=== PATIENT | female | born 1975 | race Two or more races ===

== ENCOUNTER 2024-11-24 11:20 | Outpatient (AMB) | payer BC, SELFPAY ==
--- NOTE | 2024-11-24 11:31 | A.OFFPC_ITS ---
Vital Signs 11/24/24 11:38 Height 4 ft 11.06 in Weight 125 lb 4 oz BMI 25.2 BP 114/78 Blood Pressure Location Lt brachial Position Sitting Respiration 12 Pulse 77 Pulse Source Pulse Oximeter Pulse Oximetry (%) 99 Oxygen Delivery Method Room Air Intake Visit Reasons: Est. Care Intake Note: New patient visit Event Promoter Required: No Allergies pseudoephedrine Allergy (Mild, Verified 11/24/24 11:35) Headache Sulfa (Sulfonamide Antibiotics) Allergy (Unknown, Verified 11/24/24 11:35) Unknown Medication List - Last Reconciled 11/24/24 by Gregoria Tyler PA-C albuterol sulfate 90 mcg/actuation 2 puffs inhalation Q6H PRN epinephrine 0.3 mg IM Q10M PRN Tobacco use date assessed: 11/24/24 Dental Screening Dental Screen Date: 11/24/24 Did you have a dental visit in the last 12 months?: Yes Did you have a dental problem in the last 6 months where you did not have access to dental care?: No Was dental information given to patient?: Patient has dentist HPI Est. Care HPI Details Patient is a 49-year-old female who presents today to [facility]. She is transferring from [facility]. She has a hx of renal stones, hematuria, asthma, seasonal allergies, vit d deficiency and anxiety. Pulm: She has RAD at change of season and winter specifically is harder. CV: Blood pressure today in the office is 114/78. No chest pain, shortness on breath or palpitations. Cholesterol has always been diet controlled. Uro: PVU has stones and has had to have surgical interventions. She sees them annually. Last scan showed 1 stone in left kidney in 08/07. Psych: She states that she does suffer from anxiety and paranoid. She states that as she has gotten older she has become more resistant to things such as traveling, trying new foods or medications. She says that she is not sure why she has these fears but she needs a lot of reassurance. Her is very supportive. She states that he will end of driving her places and she just wants better control of her anxiety. 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 Oviedo ([facility]), still has menses Mammo: UTD, follows through [facility] 09/14/24 Colonoscopy: Never had [facility] Surgical History (Updated 11/24/24 @ 11:44 by Dai Cuevas CMA) History of laparoscopic appendectomy Hx laparoscopic cholecystectomy H/O tubal ligation H/O oral surgery Family History (Updated 11/24/24 @ 11:46 by Dai Cuevas CMA) Mother Asthma HTN (hypertension) High cholesterol Skin cancer Maternal Grandmother Cardiovascular disease Social History (Updated 11/24/24 @ 11:41 by Dai Cuevas CMA) Housing: House Alcohol intake: current Comment: 1-2 times a year Patient Tobacco Use Status: Never used Tobacco e-Cigarette/Vaping Use: Never Used service: No Current occupational status: employed 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 1. Little interest or pleasure in doing things: not at all 2. Feeling down, depressed, or hopeless: not at all 3. Trouble falling or staying asleep, or sleeping too much: not at all 4. Feeling tired or having little energy: not at all 5. Poor appetite or overeating: not at all 6. Feeling bad about yourself - or that you are a failure or have let yourself or your family down: not at all 7. Trouble concentrating on things, such as reading the newspaper or watching television: not at all 8. Moving or speaking so slowly that other people could have noticed. Or the opposite - being so fidgety or restless that you have been moving around a lot more than usual: not at all 9. Thoughts that you would be better off or of hurting yourself in some way: not at all Total score: 0 Depression Screening Interpretation: Negative Depression Screening Done: Yes 73442 - PHQ-9 Billing: Yes Source: Developed by Drs. Master Oneill, Nithya Rosales, Aashish Cervantes and colleagues, with an educational marlen from [employer]. Thrive Questionnaire Date Thrive assessed: 11/18/24 I am a: Patient What is your living situation today?: I have a steady place to live Within the past 12 months, did the food you bought not last and you didn't have the money to get more?: Never true Within the past 12 months, did you worry whether your food would run out before you got money to buy more?: Never true Do you have trouble paying for medicines?: No Do you have trouble getting transportation to medical appointments?: No Do you have trouble paying your heating and electricity bill?: No Do you have trouble taking care of your child, family member or friend?: No Do you have trouble with day-to-day activities such as bathing, preparing meals, shopping, managing finances, etc.?: No Are you currently unemployed and looking for a job?: No Are you interested in more education?: No Please select the resources that you would like help with: None Currently or been in a relationship where the following occur: No concerns reported THRIVE Score: 0 AUDIT C Alcohol Use Questionnaire (AUDIT-C) 1. How often do you have a drink containing alcohol?: Monthly or less 2. How many drinks containing alcohol do you have on a typical day when you are drinking?: 1 or 2 3. How often do you have six or more drinks on one occasion?: Never Total Score: 1 OMARI-7 AMB Questionnaire OMARI-7 Date OMARI - 7 assessed: 11/24/24 Feeling nervous, anxious, or on edge: 0 = Not at all Not being able to stop or control worryin = Not at all Worrying too much about different things: 0 = Not at all Trouble relaxin = Not at all Being so restless that it is hard to sit still: 0 = Not at all Becoming easily annoyed or irritable: 0 = Not at all Feeling afraid as if something awful might happen: 0 = Not at all Total OMARI-7 score (0-4 normal; 5-9 mild; 10-14 moderate; 15-21 severe): 0 Source: Developed by Drs. Master Oneill, Nithya Rosales, Aashish Cervantes and colleagues, with an educational marlen from [employer]. OMARI-7 Assessment Billing OMARI-7 Assessment Tool: OMARI-7 Assessment 36178 Physical exam (Primary Care) Vital Signs: Last Vital Signs Pulse 77 11/24/24 11:38 Resp 12 11/24/24 11:38 BP 114/78 11/24/24 11:38 Pulse Ox 99 11/24/24 11:38 Oxygen Delivery Method Room Air 11/24/24 11:38 BMI result Body Mass Index 25.2 Tobacco/Smoking Status: Tobacco use Status Tobacco use date assessed 11/24/24 11/24/24 11:48 Patient Tobacco Use Status Never used Tobacco 11/24/24 11:48 e-Cigarette/Vaping Use Never Used 11/24/24 11:48 PHQ-9: PHQ-9 Score PHQ-9: Total score 0 11/24/24 11:48 Depression Screening Interpretation: Negative Thrive Assessment: Date of Thrive Assessment Date Thrive assessed 11/18/24 11/24/24 11:32 Currently or been in a relationship where the following occur: No concerns reported Const Orientation/consciousness: patient oriented x3 HENMT Ears: hearing grossly normal bilaterally Neck Thyroid: Thyroid normal Lymphatic: no lymphadenopathy noted Resp Auscultation: clear to auscultation bilaterally Cardio Rate: regular rate Rhythm: regular rhythm Heart sounds: S1 normal heart sound present and S2 normal heart sound present GI Inspection: Yes normal to inspection Palpation (GI): Soft to palpation and Other GI palpation findings present (nontender, no cva tenderness) Auscultation: normoactive bowel sounds Rectal Exam - Female: deferred Skin General skin exam: no rashes or lesions noted Neuro General: patient oriented x3, gait normal and no focal motor deficits Coding Level of Care Code New Pt Level 3 (55756) Complex EM visit Add On G2211 Diagnoses Renal stones N20.0 Vitamin D deficiency E55.9 Generalized anxiety disorder F41.1 Additional Codes OMARI-7 Assessment Billing - OMARI-7 Assessment Tool: OMARI-7 Assessment 84221 ([id number]) PHQ-9 - 65876 - PHQ-9 Billing: Yes ([id number]) Assessment & Plan Assessment & Plan (1) Renal stones: Code(s): N20.0 - Calculus of kidney Category: Medical Plan: Followed by urology (2) Vitamin D deficiency: Code(s): E55.9 - Vitamin D deficiency, unspecified Category: Medical Plan: We will monitor (3) Generalized anxiety disorder: Code(s): F41.1 - Generalized anxiety disorder Category: Medical Plan: Referral to behavioral health Plan Referral to gastroenterology Ordered Orders: Orders Complete Blood Count Auto Diff Today E55.9 - Vitamin D deficiency, unspecified, F41.1 - Generalized anxiety disorder, J45.909 - Unspecified asthma, uncomplicated, N20.0 - Calculus of kidney, Z01.89 - Encounter for other specified special examinations Vitamin D 25-OH Total Today E55.9 - Vitamin D deficiency, unspecified, F41.1 - Generalized anxiety disorder, J45.909 - Unspecified asthma, uncomplicated, N20.0 - Calculus of kidney, Z01.89 - Encounter for other specified special examinations Comprehensive [place]. Panel Fast Today E55.9 - Vitamin D deficiency, unspecified, F41.1 - Generalized anxiety disorder, J45.909 - Unspecified asthma, uncomplicated, N20.0 - Calculus of kidney, Z01.89 - Encounter for other specified special examinations Lipid Panel Today E55.9 - Vitamin D deficiency, unspecified, F41.1 - Generalized anxiety disorder, J45.909 - Unspecified asthma, uncomplicated, N20.0 - Calculus of kidney, Z01.89 - Encounter for other specified special examinations TSH reflex Free T4 Today E55.9 - Vitamin D deficiency, unspecified, F41.1 - Generalized anxiety disorder, J45.909 - Unspecified asthma, uncomplicated, N20.0 - Calculus of kidney, Z01.89 - Encounter for other specified special examinations Vitamin B12 and Folate Today F41.1 - Generalized anxiety disorder Referrals Gastroenterology Referral Z12.11 - Encounter for screening for malignant neoplasm of colon Behavioral Health Referral F41.1 - Generalized anxiety disorder
[2024-11-24 11:38] VITALS: BP 114/78; PULSE 77; RESP 12; O2SAT 99; BMI 25.2
--- OUTSIDE RECORDS SUMMARY | 2024-11-24 12:20 | XMS_ITS | Patient Health Record ---
Author Organization [employer] Address [address] [facility] [address] [place] [address] Care Team Providers Care Angle Roll Operator Name Role Phone GERMÁN GONZALES Unavailable [phone] Allergies Allergen (clinical drug ingredient) Drug/Non Drug Allergy documented on EMR Reaction Allergy Type Onset Date Status LATEX EXAM GLOVES Skin Rash Drug Allergy Active acetaminophen Acetaminophen Dizzy/Vomit Drug Allergy Active Substance with sulfonamide structure and antibacterial mechanism of action (substance) Sulfa Antibiotics Skin Rash Drug Allergy Active Reason For Referral No Information Medications Medication SIG (Take, Route, Frequency, Duration) Notes Start Date End Date Status EPINEPHrine 0.3 MG/0.3ML Injection for 2 PRN Active Albuterol Sulfate HFA 108 (90 Base) MCG/ACT 1 puff as needed Inhalation every 4 hrs PRN Active Vitamin D 5,000 IU DAILY Activ e Social History Tobacco Use: Social History Observation Description Date Details (start date - stop date) Never Smoker NA - NA Tobacco Use/Smoking Question Answer Notes Are you a nonsmoker Section Notes: She stopped drinking alcohol in May 2023. Problems Problem Type SNOMED Code ICD Code Onset Dates Problem Status W/U Status Risk Notes Problem Uncomplicated asthma (disorder) (343456117) Unspecified asthma, uncomplicated (J45.909) Active confirmed Problem Psoriasis (4179293) Psoriasis, unspecified (L40.9) Active confirmed Problem Alopecia areata (13379022) Alopecia areata, unspecified (L63.9) Active confirmed Problem Calculus of kidney (N20.0) Active confirmed Problem COVID-19 (788683805) COVID-19 (U07.1) Active confirmed Problem Gynecological examination normal ([id number]) Routine gynecological examination (V72.31) Active confirmed Diag Vital Signs Temperature 97.1 degrees Fahrenheit 12/05/2023 Blood pressure diastolic 78 mm Hg 12/05/2023 Height 59.75 in 12/05/2023 Blood pressure systolic 106 mm Hg 12/05/2023 Weight 123 lbs 12/05/2023 BMI 24.22 kg/m2 12/05/2023 Encounters Encounter Location Date Provider Diagnosis [facility] [address] [place] [address] 12/05/2023 GERMÁN GONZALES Encounter for gynecological examination (general) (routine) without abnormal findings Z01.419 and Encounter for screening mammogram for malignant neoplasm of breast Z12.31 Assessments Encounter Date Diagnosis (ICD Code) Assessment Notes Treatment Notes Treatment Clinical Notes Section Notes 12/05/2023 Encounter for gynecological examination (general) (routine) without abnormal findings (ICD-10 - Z01.419) During the visit, the following areas of concern were addressed: Discussed cervical cancer screening with either cytology alone every 3 years or high risk HPV co-testing every 5 years as per ASCCP guidelines. Advised continued annual pelvic exams. Patient encouraged to increase her level of exercise. SBE technique encouraged/tau ght. Patient reminded when annual mammogram is due. Patient encouraged to keep colon screening up to date. 12/05/2023 Encounter for screening mammogram for malignant neoplasm of breast (ICD-10 - Z12.31) Plan Of Treatment Pending Test Test Name Order Date ANTI-HEPATITIS C 07/17/2021 HEP. B SURF. AG 07/17/2021 THIN PREP,HPV,MARIAH IF HPV+/CYT-,CT/GC(>2 9YR)(DIAG) 07/17/2021 SYPHILIS TESTING 07/17/2021 HIV AB-AG 4TH GENERATION 07/17/2021 ULTRASOUND: PELVIC W/TRANSVAGINAL 2021 MM Digital Screening Mammogram 3D 2022 MM Digital Screening Mammogram 3D 2023 MM Digital Screening Mammogram 3D 2021 Next Appt Details Provider Name:GERMÁN BRADY Wade, 12/09/2024 08:30:00 AM, [address], [address], [place], [address], Insurance Providers Payer Name Payer Address Payer Phone Subscriber Number Group Number Insured Name Patient Relationship to Insured Coverage Start Date Coverage End Date [employer] [place] [address] [place] [address] [phone] [id number] BISI HILARIO Self - patient is the insured Medical (General) History Medical History History ICD Code Calculus of kidney N20.0 Unspecified asthma, uncomplicated J45.90 9 Psoriasis, unspecified L40.9 Alopecia areata, unspecified L63.9 COVID-19 U07.1 Surgical History Surgery Date(Month/Year) BTL 08/1998 Cholecystectomy/Appendectomy Right breast biopsy - [facility] 09/2021 Removal of kidney stone 07/2022 Hospitalization History Reason Date(Month/Year) Childbirth
--- OUTSIDE RECORDS SUMMARY | 2024-11-24 12:20 | XMS_ITS ---
Author Name [facility] Organization Unknown Encounters Encounter Type Encounter Reason Primary Diagnosis Location Date Ambulatory [facility] ([facility]) 08/07/2024
--- OUTSIDE RECORDS SUMMARY | 2024-11-24 12:20 | XMS_ITS ---
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 Encounter Location Date Provider Diagnosis [facility] [employer] [address] [place] [address] [address] [place] [address] 10/24/2023 GERMÁN GONZALES Plan Of Treatment Next Appt Details Provider Name:GERMÁN Olvera, 12/09/2024 08:30:00 AM, [address] [facility], [address], [place], [address], Progress Notes * BRANDY HILARIOOB:0 1975 (49 yo F)Acc No.[id number]:10/24/2023 PROGRESS NOTES Patient:?MELLISSA BONE TIFFANIE SOTO Provider:?GERMÁN GONZALES MD :1975???Age:48 Y???Sex:Female D ate:10/24/2023 Address:[address] [place] [address] Subjective: * Chief Complaints: * ???1. 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 * Medical History:? Objective: * Vitals:? Assessment: Plan: * Treatment: * Images: Billing Information: * Visit Code:? * Procedure Codes:? * Electronic signature of GERMÁN GONZALES MD on 11/24/2024 at 12:20 PM EDT Sign off status: Pending * Provider:?GERMÁN GONZALES MD Date:?2023 Generated for Anne asif/Abimael/Gordon on:?11/24/2024 12:20 PM EDT
== END 2024-11-24 12:20 | disposition home or self-care (01) ==
LOC: HO.HMCFM 11:20
PROVIDERS: PCP Physician Assistant; Visit Provider Physician Assistant
DX: N20.0 Calculus of kidney (principal); E55.9 Vitamin D deficiency, unspecified; F41.1 Generalized anxiety disorder

== ENCOUNTER → 2024-11-24 11:20 | Outpatient (BNVA) | payer BC, SELFPAY | PROVIDERS: PCP Physician Assistant; Visit Provider Physician Assistant | DX: Z76.89 Persons encountering health services in other specified circumstances (principal); N20.0 Calculus of kidney; E55.9 Vitamin D deficiency, unspecified; F41.1 Generalized anxiety disorder | CPT/HCPCS: 96127 ==

== ENCOUNTER 2024-12-09 07:33 | Outpatient (REF) | payer BC, SELFPAY ==
[2024-12-09 11:55] LABS: MANUAL DIFF FLAG NO
[2024-12-09 12:11] LABS: Basophils Percent Auto 0.6 % (0-2); Eosinophils Absolute Auto 0.3 X10*3/uL (0.0-0.4); Eosinophils Percent Auto 8.3 % (0-4); Hematocrit 35.7 % (37.0-47.0); Hemoglobin 11.8 g/dl (12.0-16.0); Imm Gran Abs Auto 0.01 X10*3/uL (0.00-0.03); Imm Gran Pct Auto 0.3 % (0.0-0.4); Lymphocytes Percent Auto 28.7 % (20-40); Mean Corpuscular HGB Conc 33.1 g/dl (31.0-35.0); Mean Corpuscular Hemoglobin 32.9 pg (27.0-33.0); Mean Corpuscular Volume 99.4 fL (80.0-98.0); Mean Platelet Volume 11.7 fL (9.4-12.3); Monocytes Absolute Auto 0.4 X10*3/uL (0.1-1.2); Monocytes Percent Auto 9.9 % (2-11); Neutrophils Absolute Auto 1.9 x10*3/uL (2.0-8.3); Neutrophils Percent Auto 52.2 % (45-73); Platelet Count 207 X10*3/uL (160-400); Red Blood Count 3.59 X10*6/uL (4.20-5.50); Red Cell Distribution Width 12.3 % (11.0-16.0); White Blood Count 3.6 X10*3/uL (4.8-10.8)
[2024-12-09 12:47] LABS: Alanine Aminotransferase 22 U/L (0-31); Albumin Level 4.4 g/dL (3.5-5.0); Alkaline Phosphatase 64 U/L (39-117); Anion Gap 10 (12-20); Aspartate Amino Transferase 21 U/L (5-31); Bilirubin Total 0.5 mg/dL (0.0-1.0); Blood Urea Nitrogen 13 mg/dL (9-16); Calcium 9.6 mg/dL (8.4-10.2); Carbon Dioxide 28 mmol/L (22-29); Chloride 110 mmol/L (96-108); Cholesterol 192 mg/dL (<200); Estimated Glomerular Filt Rate > 60; Glucose Fasting 93 mg/dL (60-99); HDL Cholesterol 68 mg/dL (>40); LDL Cholesterol Calculated 116 mg/dL (<100); Sodium 144 mmol/L (135-145); Triglycerides 40 mg/dL (<150)
[2024-12-09 13:05] LABS: Vitamin D 25-OH Total 32.2 ng/mL (>30)
[2024-12-09 13:16] LABS: Folate 8.2 ng/mL (> or = 4.0); Vitamin B12 175 pg/mL (200-900)
== END 2024-12-09 07:34 | disposition home or self-care (01) ==
LOC: HO.WFDLDS 07:33
PROVIDERS: Visit Provider Physician Assistant
DX: Z01.89 Encounter for other specified special examinations (principal); N20.0 Calculus of kidney; J45.909 Unspecified asthma, uncomplicated; E55.9 Vitamin D deficiency, unspecified; F41.1 Generalized anxiety disorder
CPT/HCPCS: 36415; 80053; 80061; 82306; 82607; 82746; 84443; 85025

== ENCOUNTER 2024-12-29 10:28 | Outpatient (REF) | payer BC, SELFPAY ==
--- OUTSIDE RECORDS SUMMARY | 2023-10-24 05:30 | XMS_ITS ---
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 Encounters Encounter Location Date Provider Diagnosis [facility] [address] [place] [address] [address] [place] [address] 10/24/2023 GERMÁN GONZALES Plan Of Treatment Next Appt Details Provider Name:GERMÁN Olvera, 12/13/2025 08:20:00 AM, [address] [facility], [address], [place], [address], Progress Notes * MALLOY BRANDY BONEOB:0 1975 (49 yo F)Acc No.[id number]:10/24/2023 PROGRESS NOTES Patient: Val BONE BISI Provider: Ting GONZALES MD :1975 A ge:48 Y S ex:Female Date:10/24/2023 Address:[address] [place] [address], [id number] Subjective: * Chief Complaints: * 1 . 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 * Medical History: Objective: * Vitals: Assessment: Plan: * Treatment: * Images: Billing Information: * Visit Code: * Procedure Codes: * Electronic signature of GERMÁN GONZALES MD on 12/29/2024 at 11:54 AM EDT Sign off status: Pending * Provider: Ting GONZALES MD Date: 0 10/24/2023 Generated for Anne asif/Abimael/Jaydaitting on: 0 12/29/2024 11:54 AM EDT
[2024-12-29 14:22] LABS: MANUAL DIFF FLAG NO
[2024-12-29 14:28] LABS: Basophils Percent Auto 0.5 % (0-2); Eosinophils Absolute Auto 0.3 X10*3/uL (0.0-0.4); Hematocrit 35.7 % (37.0-47.0); Hemoglobin 11.9 g/dl (12.0-16.0); Imm Gran Abs Auto 0.01 X10*3/uL (0.00-0.03); Imm Gran Pct Auto 0.3 % (0.0-0.4); Lymphocytes Percent Auto 25.9 % (20-40); Mean Corpuscular HGB Conc 33.3 g/dl (31.0-35.0); Mean Corpuscular Hemoglobin 33.1 pg (27.0-33.0); Mean Corpuscular Volume 99.2 fL (80.0-98.0); Mean Platelet Volume 11.5 fL (9.4-12.3); Monocytes Absolute Auto 0.3 X10*3/uL (0.1-1.2); Monocytes Percent Auto 8.6 % (2-11); Neutrophils Absolute Auto 2.1 x10*3/uL (2.0-8.3); Neutrophils Percent Auto 57.7 % (45-73); Platelet Count 225 X10*3/uL (160-400); Red Cell Distribution Width 12.5 % (11.0-16.0); White Blood Count 3.7 X10*3/uL (4.8-10.8)
[2024-12-29 14:43] LABS: Iron 98 mcg/dL (30-160); Percent Iron Saturation 28 % (15-50); Total Iron Binding Capacity 351 mcg/dL (228-428); Unsaturated Iron Binding 253 ug/dL
[2024-12-29 15:04] LABS: Ferritin 9 ng/mL (10-250)
== END 2024-12-29 10:29 | disposition home or self-care (01) ==
LOC: HO.WFDLDS 10:28
PROVIDERS: Visit Provider Physician Assistant
DX: D64.9 Anemia, unspecified (principal)
CPT/HCPCS: 36415; 82728; 83540; 85025

== ENCOUNTER → 2025-01-25 13:11 | Outpatient (BNV) | payer BC, SELFPAY | PROVIDERS: PCP Physician Assistant; Referring Provider Physician Assistant; Visit Provider Internal Medicine Medical Oncology | DX: D50.9 Iron deficiency anemia, unspecified (principal) | CPT/HCPCS: 99204 ==

== ENCOUNTER 2025-05-04 15:35 | Outpatient (AMB) | payer BC, SELFPAY ==
--- NOTE | 2025-05-04 15:39 | A.OFFVIS_ITS ---
Vital Signs 05/04/25 15:40 Height 4 ft 6 in Weight 126 lb BMI 30.4 BP 119/86 Blood Pressure Location Lt brachial Position Sitting Pulse 86 Pulse Oximetry (%) 98 Oxygen Delivery Method Room Air Intake Visit Reasons: colo screen Intake Note: Patient new consult for 1st pre Colonoscopy screening Patient denies any GI issues for today visit. 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 Referred for pre colonoscopy screening Pt reports daily BM, with rare constipation episodes initially after starting Fe supplementation three months ago; currently regular since initiation of new regimen. No c/o diarrhea. No further issues with iron-induced constipation after initial adjustment; managed with morning admin and orange juice. No reported med side effects. Denies recurrent reflux, heartburn is rare and only triggered by late-night tomato-based meals; managed by lifestyle avoidance, no meds required. Menses have normalized since Fe therapy; no heavy bleeding. Reports stable appetite and diet. No new systemic or GI sx, urgent visits, or hospitalizations. . No reported is sues with asthma or need for inhaler use. Patient denies: fever/chills, n/v, appetite changes, regurgitation,dysphasia, unintentional wt loss, ab pain or melena/hematochezia. Social hx: -denies ETOH use -denies recreational drug use - non-smoker - family hx as below -denies personal hx of CA -denies significant cardiopulmonary history -tolerated anesthesia in the past without difficulty. [facility] Medical History (Updated 05/05/25 @ 11:53 by Genny Lao CNP) Colon cancer screening Surgical History History of laparoscopic appendectomy Hx laparoscopic cholecystectomy H/O tubal ligation H/O oral surgery Family History (Updated 05/04/25 @ 16:02 by Genny Lao CNP) Mother Asthma HTN (hypertension) High cholesterol Skin cancer Diverticulosis Maternal Grandmother Cardiovascular disease Son Crohn disease Social History Household Members: Spouse Housing: House Are you a primary respiratory care technician to a significant other at home: Yes Do you presently have visiting nurse or other home services: No Alcohol intake: current Comment: 1-2 times a year Patient Tobacco Use Status: Never used Tobacco e-Cigarette/Vaping Use: Never Used Second Hand Smoke Exposure: No service: No Current occupational status: employed 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 Current occupational exposures/hazards: No Cognitive needs: No Hearing needs: No Vision needs: No Review of Systems Const Reports as per HPI ENT Reports as per HPI Card Reports as per HPI Resp Reports as per HPI GI Reports as per HPI Reports as per HPI Physical Exam Vital Signs: Last Vital Signs Pulse 86 05/04/25 15:40 BP 119/86 05/04/25 15:40 Pulse Ox 98 05/04/25 15:40 Oxygen Delivery Method Room Air 05/04/25 15:40 BMI result Body Mass Index 30.4 Const General: healthy appearing, no acute distress and well developed Nutritional Appearance: average body habitus Orientation/consciousness: patient oriented x3 HEENT Head: Yes normal to inspection, Yes normocephalic and Yes atraumatic Face and sinus: Yes normal facial exam Eyes General: appearance normal, both eyes and all related structures Neck Neck: Yes normal visual inspection Resp Effort & Inspection: normal respiratory effort, able to speak in complete sentences, no tracheal deviation and symmetric chest movement Auscultation: clear to auscultation bilaterally Cardio Jugular venous distension: no JVD Rate: regular rate Rhythm: regular rhythm Heart sounds: S1 normal heart sound present, S2 normal heart sound present, no gallops and no murmurs GI Inspection: Yes normal to inspection and No distended Palpation (GI): Soft to palpation, not firm, nontender and No hepatosplenomegaly present Auscultation: normal bowel sounds Neuro General: patient oriented x3 Gait exam (Neuro): Normal gait present Psych Appearance: grossly normal Mental Status: mental status grossly normal Speech and movement: Normal speech and movement present Affect: normal affect Attitude: cooperative Thought process: Normal thought process present Thought content: Normal thought content present Insight: Good insight present (Psych) Judgement: Good judgement present (Psych) Assessment & Plan Assessment & Plan (1) Colon cancer screening: Code(s): Z12.11 - Encounter for screening for malignant neoplasm of colon Category: Medical Plan: Screening indicated due to age and Fe deficiency anemia of unclear source. Additional Testing: Colonoscopy scheduled as both diagnostic (anemia workup) and CRC screening. Medications: -prescriptions for laxative tablets and MiraLax sent to pharmacy; instructions for Gatorade purchase and clear liquid diet given. Patient educated on scheduling process, procedure preparation, including avoiding certain foods and ensuring clear liquid intake Advised on necessity for ride post-procedure due to sedation. (2) Anemia: Code(s): D64.9 - Anemia, unspecified Category: Medical Qualifiers: Anemia type: iron deficiency Iron deficiency anemia type: unspecified iron deficiency Qualified Code(s): D50.9 - Iron deficiency anemia, unspecified Plan: Stable; menses regular; responding to Fe/B12 with normalized cycle and improved sx. - Occult GI blood loss yet to be excluded. No constitutional or alarming GI sx. Additional Testing: - Colonoscopy & EGD ordered to r/o upper/lower GI bleeding/malabsorptive/ulcerative etiology. Medications: - Continue Fe PO QD (AM w/OJ); continue B12 per current regimen. - No changes to Rx unless side effects develop. Lifestyle Recommendations: - Continue high-fiber, hydration. - Maintain avoidance of dietary triggers for reflux. Referrals / Coordination of Care: - Scheduling colonoscopy + EGD. - Pharmacy: Miralax, bisacodyl. - No other current referrals. Follow-Up Plan: - FU after procedure for results/reassessment. - Monitor Fe/blood indices post-endoscopy. Plan Follow-up after endoscopy or sooner as needed Time: I spent a total of 30 minutes on the date of encounter which includes: Preparing to see the patient (reviewed previous documentation, test results and medical history) Performing a medically appropriate exam and/or evaluation Ordering medications, tests, and procedures Documenting clinical information in the health record Orders: Referrals GI Procedure Notification D64.9 - Anemia, unspecified, Z12.11 - Encounter for screening for malignant neoplasm of colon Medications: New polyethylene glycol 3350 (Miralax) per colonoscopy prep instructions 238 grams PO ONCE 238 grams 0RF bisacodyl Take per colonoscopy instructions 20 mg (4 x 5 mg) PO ONCE 4 tabs 0RF Coding Level of Care Code New Pt New Pt Level 3 (92357) Patient Type New Diagnoses Colon cancer screening Z12.11 Iron deficiency anemia, unspecified iron deficiency anemia type D50.9 Anemia type: iron deficiency Iron deficiency anemia type: unspecified iron deficiency
[2025-05-04 15:40] VITALS: BP 119/86; PULSE 86; O2SAT 98; BMI 30.4
--- OUTSIDE RECORDS SUMMARY | 2025-05-04 21:42 | XMS_ITS | Data Portability ---
Author Organization [facility] Address [address] [place] [address] Care Team Providers Care Assistant Name Role Phone MCKAY LUIS EDUARDO Primary Care Provider Assessment No assessment recorded. Plan of Treatment Reminders Order Date Submit Date Provider Last Modified By Organization Details Last Modified Time Details Appointments None recorded. Lab rapid flu (A+B) 2024 025 [email or web address] 247 _[facility], [address] [place] [address], [phone], 5 09:14:28 SARS CoV 2 (COVID-19) Ag, QL, IA, upper respiratory specimen 2024 025 [email or web address] 247 _[facility], [address] [place] [address], [phone], 5 09:14:28 Referral None recorded. Procedures None recorded. Surgeries None recorded. Imaging None recorded. Medication Orders None recorded. Patient TargetsNo targets recorded. Patient Instructions Encounter Date Encounter Id Patient Instructions Last Modified By Organization Details Last Modified Time 08/07/2024 [id number] If you test positive for COVID-19, stay home for at least 5 days and isolate from others in your home. You are likely most infectious during these first 5 days. Wear a high-quality mask if you must be around others at home and in public. Do not go places where you are unable to wear a mask. For travel guidance, see [facility] s Travel webpage. Do not travel. Stay home and separate from others as much as possible. Use a separate bathroom, if possible. Take steps to improve ventilation at home, if possible. Don t share personal household items, like cups, towels, and utensils. Monitor your symptoms. If you have an emergency warning sign (like trouble breathing), seek emergency medical care immediately. If you had symptoms and: Your symptoms are improving You may end isolation after day 5 if: You are fever-free for 24 hours (without the use of fever-reducing medication). Your symptoms are not improving Continue to isolate until: You are fever-free for 24 hours (without the use of fever-reducing medication). Your symptoms are improving. Regardless of when you end isolation Until at least day 11: Avoid being around people who are more likely to get very sick from COVID-19. Remember to wear a high-quality mask when indoors around others at home and in public. Do not go places where you are unable to wear a mask until you are able to discontinue masking (see below). For travel guidance, see [facility] s Travel webpage. [email or web address] Not available 08/07/2024 09:03:46 Reason for Referral None Reported. Results Created Date Observation Date Name Description Value Unit Range Abnormal Flag Note LastModifiedBy Organization Detail LastModifiedTime 08/07/1908/07/2024 rapid flu (A+B) Unknown Analyte negati ve Not Available ie [address], [address], 08/07/2024 08:44:23 08/07/19 25 08/07/2024 rapid flu (A+B) Unknown Analyte negati ve Not Available ie [address], [address], 08/07/2024 08:44:23 08/07/19 25 08/07/2024 rapid flu (A+B) Unknown Analyte n Not Available [address], [address], 08/07/2024 08:44:23 08/07/19 25 08/07/2024 rapid flu (A+B) Unknown Analyte yes Not Available [address] [place] [address], [address], 08/07/2024 08:44:23 08/07/1908/07/2024 SARS CoV 2 (COVI D-19) Ag, QL, IA, upper respi rator y speci men Unknown Analyte positi ve Not Available [address] [place] [address], [phone], 08/07/2024 08:52:11 08/07/1908/07/2024 SARS CoV 2 (COVI D-19) Ag, QL, IA, upper respi rator y speci men Unknown Analyte n Not Available [address] [place] [address], [phone], 08/07/2024 08:52:11 08/07/1908/07/2024 SARS CoV 2 (COVI D-19) Ag, QL, IA, upper respi rator y speci men Unknown Analyte yes Not Available [address] [place] [address], [phone], 08/07/2024 08:52:11 Result Notes None recorded. Problems Name Problem SNOMED Code Status Onset Date Resolution Date Notes Provider Name and Address Organization Details Recorded Time Asthma 058270557 Active Frank anderson PA - [facility] 08/07/2024 08:42:02 Problem Notes None recorded. Medical Equipment None Reported. Allergies Allergen ID Allergen Name Allergen Category Reaction Reaction Severity Criticality Documentation Date Start Date Code Code System Note Provider Name and Address Organization Details Recorded Time 6109897 Substance with sulfonami de structure and antibacte rial mechanism of action (substanc e) medicatio n itching Not available Not available 08/07/2024 93266 8003 SNOMED Frank anderson PA - [facility] 08:40:25 8900116 latex environme nt,medica tion rash Not available Not available 08/07/2024 31454 91 RxNorm Frank Park monica PA - [facility] 5 08:40:42 7152664 peanut allergeni c extract food,medi cation edema Not available Not available 08/07/2024 81284 8 RxNorm Frank Park monica, PA - [facility] 5 08:41:05 8624258 shellfish derived food,medi cation edema Not available Not available 08/07/2024 Frank Zhang Xavier anderson PA - [facility] 08:41:20 Medications Name Sig Start Date Stop Date Status Note LastModified by Organization Details LastModified Time clobetasol 0.05 % topical cream APPLY TO AFFECTED AREA TWICE A DAY NEEDED FOR FLARE FOR UP TO 2 WEEKS active Not Available Not Available No t Available albuterol sulfate HFA 90 mcg/actuatio n aerosol inhaler INHALE 2 PUFFS INTO THE LUNGS EVERY 4 HOURS NEEDED FOR COUGH, WHEEZING OR SHORTNESS OF BREATH. active Not Available Not Available N ot Available Zoryve 0.3 % topical cream Apply TO THE affected AREAS ONCE daily active Not Available Not Available No t Available Vitals Date Recorded Body height Body mass index (BMI) Body weight Oxygen saturation Oxygen saturation in Arterial blood by Pulse oximetry Heart rate Respiratory rate Body temperature Systolic And Diastolic Provider Name and Address Organization Details Last Updated DateTime 149.86 cm 25.2 kg/m2 99071.0 5 g 99 % 99 % 110 /min 22 /min 98 [degF] 113/79 mm[Hg] Frank Vicente Park PA Maria Elena [facility] 5 08:38:57 Social History Question Answer Notes LastModified by Organizat ion Details LastModified Time Tobacco Smoking Status Never Smoker Frank Park monica PA - [facility] 08/07/2024 08:42:35 Have You Had A Flu Shot This Season? No Information not available 08/07/2024 If No, Would You Like A Flu Shot Today? No Information not available 08/07/2024 What Is Your Water Source? City Information not available 08/07/2024 What Is Your Heat Source? Other Information not available 08/07/2024 What Is Your Relationship Status? Information not available 08/07/2024 Are You Passively Exposed To Smoke? No Information no t available 08/07/2024 Have You Recently Traveled Abroad? No Information not available 08/07/2024 Sex: Unknown Functional Status Question Answer Note LastModified by Organizat ion Details LastModified Time Do you use any illicit or recreational drugs? No Information not available 08/07/2024 Do you or have you ever used any other forms of tobacco or nicotine? No Information not available 08/07/2024 What is your level of alcohol consumption? None Information not available 08/07/2024 Are you currently employed? Yes Information not available 08/07/2024 Mental Status None recorded. Family History Nothing Reported. Medical History No medical history recorded. Gynecological History Statement/Question Response Date of LMP 08/03/2024 Is there any chance of ? No Obstetrics History GPAL:G 0 P 0 0 0 0 Past Encounters Encounter ID Performer Location Encounter Start Date Encounter Closed Date Diagnosis/Indication Diagnosis SNOMED-CT Code Diagnosis ICD10 Code Diagnosis IMO Codes Diagnosis Note [id number] 2099[facility] [address] [address] 11/17/2018 16:22:28 11/17/2018 18:02:[id number] [place] [address] [address] [address] [address] 10/09/2015 09:17:19 10/09/2015 09:55:55 [id number] 2099[facility] [address] [address] 09/15/2019 15:39:13 09/15/2019 16:42:[id number] [place] [address] [address] [address] 07/19/2016 12:17:31 07/19/2016 13:34:38 [id number] [facility] [address] [place] [id number] 09/20/2019 16:06:36 09/20/2019 16:49:[id number] [place], [place] [address] [place] [id number] 05/10/2019 16:10:32 05/10/2019 16:53:[id number] [address] [place] [address] 03/16/2016 09:36:07 03/16/2016 10:31:[id number] [place], [place] [address] [place] [address] 07/17/2017 13:06:30 07/17/2017 13:47:[id number] [place] [address] [place] [address] 08/24/2019 08:20:12 08/24/2019 09:12:[id number] [place] [address] [place] [address] 03/05/2021 11:54:04 03/05/2021 13:01:29 [id number] PREET BANKS [place] [address] [place] [address] 08/07/2024 08:24:38 08/07/2024 09:08:27 [facility] [id number] R05.9 Health Concerns Section Related Observation LastModified by Organization Detai ls LastModified Time None Recorded Concern Status LastModified by Organization Details LastModified Time None Recorded Advance Directives Directive None Recorded Payers Insurance Date Sequence Insurance Name Policy Number Policy Pike Covered Member ID Pike Member ID Guarantor Name 08/07/2024 1 [place] [id number] Rahel Galicia [id number] Rahel Galicia Notes Date Note Type Note Provider Name and Address Organization Details Recorded Time 08/07/2024 text/html CoughReported by PatientHPIFor quality, patient reportsharsh,barking , anddry. For severity, patient reportsmoderate. For duration, patient reportsconstantand2 days. For timing, patient reportssudden. For context, patient reportspatient denies vapingandnon-smoker. For associated symptoms, patient reportsno fever,no chills,no chest pain,no heartburn,no nausea,no vomiting,no edema,no agitation,no wheezing, andno post nasal drip. PREET BANKS MD [address] [place], [address], PA - [facility] 08/07/2024 09:14:31 OBGyn Episode No OBEpisode recorded.
--- OUTSIDE RECORDS SUMMARY | 2025-05-04 21:43 | XMS_ITS | Patient Health Record ---
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 Role Phone GERMÁN GONZALES Unavailable [phone] Allergies Allergen (clinical drug ingredient) Drug/Non Drug [...] Date End Date Status EPINEPHrine 0.3 MG/0.3ML Injection; Duration: 2 PRN Active Vitamin D 5,000 IU DAILY Activ e Albuterol Sulfate HFA 108 (90 Base) MCG/ACT 1 puff as needed Inhalation every 4 hrs PRN Active Social History Tobacco Use: Social History Observation Description Date Details (start date - stop date) Never Smoker NA - NA Tobacco Use/Smoking Question Answer Notes Are you a nonsmoker AUDIT-C (Standard) Question Answer Notes Did you have a drink contain ing alcohol in the past year? Yes How often did you have a dri nk containing alcohol in the past year? Monthly or less (1 point) How many drinks did you have on a typical day when you were drinking in the past year? 1 or 2 drinks (0 point) How often did you have six o r more drinks on one occasion in the past year? Never (0 point) Points 1 Interpretation Negative Section Notes: She stopped drinking alcohol in May 2023. She stopped drinking alcohol in May 2023. Problems Problem Type SNOMED Code ICD Code Onset Dates Problem Status W/U Status Risk Notes Problem Uncomplicated asthma (disorder) (395954490) Unspecified asthma, uncomplicated (J45.909) Active confirmed Problem Psoriasis (6047178) Psoriasis, unspecified (L40.9) Active confirmed Problem Alopecia areata (57643477) Alopecia areata, unspecified (L63.9) Active confirmed Problem Calculus of kidney (83474021) Calculus of kidney (N20.0) Active confirmed Problem COVID-19 (662674834) COVID-19 (U07.1) Active confirmed Problem Gynecological examination normal (032505457206472) Routine gynecological examination (V72.31) Active confirmed Diag Vital Signs Temperature 97.7 degrees Fahrenheit 12/09/2024 Blood pressure diastolic 74 mm Hg 12/09/2024 Height 59.75 in 12/09/2024 Blood pressure systolic 122 mm Hg 12/09/2024 Weight 122 lbs 12/09/2024 BMI 24.02 kg/m2 12/09/2024 Encounters Encounter Location Date Provider Diagnosis [address] [place] [address] 12/09/2024 GERMÁN GONZALES Encounter for gynecological examination (general) (routine) without abnormal findings Z01.419 and Encounter for screening mammogram for malignant neoplasm of breast Z12.31 Assessments Encounter Date Diagnosis (ICD Code) Assessment Notes Treatment Notes Treatment Clinical Notes Section Notes 12/09/2024 Encounter for gynecological examination (general) (routine) without [...] to keep colon screening up to date. 12/09/2024 Encounter for screening mammogram for malignant neoplasm [...] 3D 2023 MM Digital Screening Mammogram 3D 2024 MM Digital Screening Mammogram 3D 2021 Next Appt Details Provider Name:GERMÁN Olvera, 12/13/2025 08:30:00 AM, [address], [address], [place], [address], Insurance Providers Payer Name Payer Address Payer Phone Subscriber Number Group Number Insured Name Patient Relationship to Insured Coverage Start Date Coverage End Date [employer] [place] [address] [place] [address] [id number] BISI HILARIO Self - patient is the insured Medical (General) History Medical History History ICD Code Calculus of kidney N20.0 Unspecified asthma, uncomplicated J45.90 9 Psoriasis, unspecified L40.9 Alopecia areata, unspecified L63.9 COVID-19 U07.1 Surgical History Surgery Date(Month/Year) BTL 08/1998 Cholecystectomy/Appendectomy Right breast biopsy - [facility] 09/2021 Removal of kidney stone 07/2022 Hospitalization History Reason Date(Month/Year) Childbirth
== END 2025-05-04 16:41 | disposition home or self-care (01) ==
LOC: HO.HGI 15:36
PROVIDERS: PCP Physician Assistant; Visit Provider Nurse Practitioner Family
DX: Z01.818 Encounter for other preprocedural examination (principal); Z12.11 Encounter for screening for malignant neoplasm of colon; D50.9 Iron deficiency anemia, unspecified
CPT/HCPCS: S0285

== ENCOUNTER 2025-06-01 08:22 | Outpatient (AMB) | payer BC, SELFPAY ==
--- NOTE | 2025-06-01 08:28 | MHC.PC.OV ---
Vital Signs 06/01/25 08:29 Height 4 ft 6 in Weight 128 lb BMI 30.9 BP 108/74 Blood Pressure Location Rt brachial Position Sitting Respiration 12 Pulse 81 Pulse Source Pulse Oximeter Temp 97.9 F Temp Source Oral Pulse Oximetry (%) 100 Oxygen Delivery Method Room Air Intake Visit Reasons: 6 month fu Intake Note: Follow up [employer] Required: No Allergies shellfish derived (shellfish) Allergy (Severe, Verified 06/01/25 08:31) Anaphylaxis tree nut Allergy (Severe, Verified 06/01/25 08:31) Anaphylaxis pseudoephedrine Allergy (Mild, Verified 06/01/25 08:31) Headache Sulfa (Sulfonamide Antibiotics) Allergy (Unknown, Verified 06/01/25 08:31) Unknown peanuts Allergy (Severe, Uncoded 06/01/25 08:31) Anaphylaxis salmon Allergy (Severe, Uncoded 06/01/25 08:31) Anaphylaxis Medication List - Last Reconciled 06/01/25 by Gregoria Tyler PA-C albuterol sulfate 90 mcg/actuation 2 puffs inhalation Q6H PRN cyanocobalamin (vitamin B-12) (Vitamin B-12) 1,000 mcg PO DAILY epinephrine 0.3 mg (0.3 mL) IM Q10M PRN ferrous sulfate 325 mg PO DAILY polyethylene glycol 3350 (Miralax) 238 grams PO ONCE Tobacco use date assessed: 06/01/25 Dental Screening Dental Screen Date: 11/24/24 HPI 6 month fu HPI Details Patient is a 50-year-old female who presents today to [facility]. She is transferring from [facility]. She has a hx of renal stones, hematuria, asthma, seasonal allergies, vit d deficiency and anxiety. Heme: Following with Hematology for anemia and with GI for the anemia. Compliant with iron and B12 supplement Pulm: She has RAD at change of season and winter specifically is harder. CV: Blood pressure today in the office is 108/74. No chest pain, shortness on breath or palpitations. Cholesterol has always been diet controlled. GI: States that 3 times in the last handful of years she has had severe abdominal pain after drinking wine. She states that last weekend she went out to eat and had a glass of wine and within 20 minutes she had severe right upper quadrant pain that relieved with belching and then she had diarrhea. She says that this is happened 3 times in her life and every time it seems like wine may have been a trigger. She states because of the she does not really drink. She also has an appointment coming up with GI for a double endoscopy 07/12. Currently asymptomatic. No fevers or chills. She states that the pain went away very quickly after the belching and then she felt like her stomach ?cleansed ?. She has not noted any blood in the stool. Her son does have Crohn's disease. She has a history of a cholecystectomy. Uro: PVU has stones and has had to have surgical interventions. She sees them annually. Last scan showed 1 stone in left kidney in 08/07. Psych: She states that she does suffer from anxiety and paranoia Radiologic Technologist: Dr. Oviedo ([facility]), still has menses Mammo: UTD, follows through [facility] 09/14/24 Colonoscopy: Never had, scheduled 07/12 [facility] Medical History (Updated 06/01/25 @ 08:48 by Gregoria Tyler PA-C) Colon cancer screening Surgical History History of laparoscopic appendectomy Hx laparoscopic cholecystectomy H/O tubal ligation H/O oral surgery Family History Mother Asthma HTN (hypertension) High cholesterol Skin cancer Diverticulosis Maternal Grandmother Cardiovascular disease Son Crohn disease Social History Household Members: Spouse Housing: House Are you a primary healthcare financial analyst to a significant other at home: Yes Do you presently have visiting nurse or other home services: No Alcohol intake: current Comment: 1-2 times a year Patient Tobacco Use Status: Never used Tobacco e-Cigarette/Vaping Use: Never Used Second Hand Smoke Exposure: No service: No Current occupational status: employed 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 Current occupational exposures/hazards: No Cognitive needs: No Hearing needs: No Vision needs: No Questionnaire Thrive Questionnaire Date Thrive assessed: 11/18/24 I am a: Patient What is your living situation today?: I have a steady place to live Within the past 12 months, did the food you bought not last and you didn't have the money to get more?: Never true Within the past 12 months, did you worry whether your food would run out before you got money to buy more?: Never true Do you have trouble paying for medicines?: No Do you have trouble getting transportation to medical appointments?: No Do you have trouble paying your heating and electricity bill?: No Do you have trouble taking care of your child, family member or friend?: No Do you have trouble with day-to-day activities such as bathing, preparing meals, shopping, managing finances, etc.?: No Are you currently unemployed and looking for a job?: No Are you interested in more education?: No Please select the resources that you would like help with: None Currently or been in a relationship where the following occur: No concerns reported THRIVE Score: 0 AUDIT C Alcohol Use Questionnaire (AUDIT-C) 1. How often do you have a drink containing alcohol?: Never 3. How often do you have six or more drinks on one occasion?: Never Total Score: 0 OMARI-7 AMB Questionnaire OMARI-7 Date OMARI - 7 assessed: 11/24/24 Source: Developed by Drs. Master Oneill, Nithya Rosales, Aashish Cervantes and colleagues, with an educational marlen from [employer]. Physical exam (Primary Care) Vital Signs: Last Vital Signs Temp 97.9 F 06/01/25 08:29 Pulse 81 06/01/25 08:29 Resp 12 06/01/25 08:29 BP 108/74 06/01/25 08:29 Pulse Ox 100 06/01/25 08:29 Oxygen Delivery Method Room Air 06/01/25 08:29 BMI result Body Mass Index 30.9 Tobacco/Smoking Status: Tobacco use Status Tobacco use date assessed 06/01/25 06/01/25 08:34 Patient Tobacco Use Status Never used Tobacco 06/01/25 08:34 e-Cigarette/Vaping Use Never Used 06/01/25 08:34 Thrive Assessment: Date of Thrive Assessment Date Thrive assessed 11/18/24 06/01/25 08:34 Currently or been in a relationship where the following occur: No concerns reported Const Orientation/consciousness: patient oriented x3 HENMT Ears: hearing grossly normal bilaterally Neck Thyroid: Thyroid normal Lymphatic: no lymphadenopathy noted Resp Auscultation: clear to auscultation bilaterally Cardio Rate: regular rate Rhythm: regular rhythm Heart sounds: S1 normal heart sound present and S2 normal heart sound present GI Inspection: Yes normal to inspection Palpation (GI): Soft to palpation and Other GI palpation findings present (nontender, no cva tenderness) Auscultation: normoactive bowel sounds Rectal Exam - Female: deferred Skin General skin exam: no rashes or lesions noted Neuro General: patient oriented x3, gait normal and no focal motor deficits Results Reviewed Results Reviewed: Laboratory Tests 01/25/25 05/24/25 14:33 14:02 WBC 6.3 RBC 3.68 L Hgb 12.5 Hct 36.9 L Plt Count 203 Sodium 139 Potassium 3.9 Chloride 108 Carbon Dioxide 27 Anion Gap 8 L BUN 12 Creatinine 0.66 Estimated GFR > 60 AST 15 ALT 18 Total Protein 6.6 Albumin 4.3 Vitamin B12 480 Coding Level of Care Code Est Pt Level 4 (66709) Complex EM visit Add On G2211 Diagnoses Abdominal pain R10.9 Iron deficiency anemia, unspecified iron deficiency anemia type D50.9 Anemia type: iron deficiency Iron deficiency anemia type: unspecified iron deficiency Assessment & Plan Assessment & Plan (1) Abdominal pain: Code(s): R10.9 - Unspecified abdominal pain Category: Medical Plan: Abdominal exam today is benign. Labs reviewed with patient. I have ordered an abdominal ultrasound. Advised to contact me if pain returns or if anything worsens or changes. We do have a follow up in one-month. She will follow up again sooner if anything changes. (2) Anemia: Code(s): D64.9 - Anemia, unspecified Category: Medical Qualifiers: Anemia type: iron deficiency Iron deficiency anemia type: unspecified iron deficiency Qualified Code(s): D50.9 - Iron deficiency anemia, unspecified Plan: We will monitor. Orders: Orders US abdomen complete Today R10.9 - Unspecified abdominal pain
[2025-06-01 08:29] VITALS: BP 108/74; PULSE 81; RESP 12; TEMP 36.6; O2SAT 100; BMI 30.9
--- OUTSIDE RECORDS SUMMARY | 2025-06-01 16:04 | XMS_ITS | Encounter Summary ---
Author Organization [facility] Address [address] [place] [address] Care Team Providers Care Make Up Girl Name Role Phone Ministerio Barnhart MD Primary Care Provider Unavail able Aranza Amezquita MD Primary Care Provider Eulalio Muse MD Primary Care Provider Earl Marin DO Primary Care Provider Unavaila Leslye Selby MD Primary Care Provider Un available Encounter Details Date Type Department Care Team Description 03/13/2015 Audio Visual Director Report Medical Records [address] [place] [id number] Anthony Rao MD Social History Tobacco Use Types Packs/Day Years Used Date Smoking Tobacco: Never Smokeless Tobacco: Never Alcohol Use Standard Drinks/Week Comments No 0 (1 standard drink = 0.6 oz pur e alcohol) Sex Assigned at Date Recorded Female 02/22/2021 3:16 PM E DT documented as of this encounter Plan of Treatment Not on file documented as of this encounter Visit Diagnoses Not on filedocumented in this encounter Care Teams Make Up Girl Relationship Specialty Start Date End Date Ministerio Barnhart MD PCP - General 09/02/08 08/20/15 Aranza Amezquita MD PCP - General Internal Medicine 08/21/15 04/04/21 Eulalio Mcqueen MD PCP - General Internal Medicine 04/05/21 06/20/21 Earl Angeles DO PCP - General Internal Medicine 06/21/21 04/22/24 Leslye Greenberg MD PCP - General Internal Medicine 04/23/24 documented as of this encounter
--- OUTSIDE RECORDS SUMMARY | 2025-06-01 16:04 | XMS_ITS | Encounter Summary ---
Author Organization [facility] Address [address] [place] [address] Care Team Providers Care Plywood Layup Line Back Feeder Name Role Phone Aranza Amezquita MD Primary Care Provider Eulalio Muse MD Primary Care Provider Earl Marin DO Primary Care Provider Unavaila Leslye Selby MD Primary Care Provider Un available Encounter Details Date Type Department Care Team Description 02/25/2017 Adult Specialist Report Medical Records [address] [place] [address] Social History Tobacco Use Types Packs/Day Years [...] on filedocumented in this encounter Care Teams Plywood Layup Line Back Feeder Relationship Specialty Start Date End Date Aranza Amezquita MD PCP - General Internal Medicine 08/21/15 04/04/21 Eulalio Mcqueen MD PCP - General Internal Medicine 04/05/21 06/20/21 Earl Angeles DO PCP - General Internal Medicine 06/21/21 04/22/24 Leslye Greenberg MD PCP - General Internal Medicine 04/23/24 documented as of this encounter
--- OUTSIDE RECORDS SUMMARY | 2025-06-01 16:04 | XMS_ITS | Encounter Summary ---
Author Organization [facility] Address [address] [place] [address] Care Team Providers Care Associate Art Director Name Role Phone Ministerio Barnhart MD Primary Care Provider Unavail Aranza Byers MD Primary Care Provider Eulalio Muse MD Primary Care Provider Earl Marin DO Primary Care Provider UnavailLeslye Manzanares MD Primary Care Provider Un available Encounter Details Date Type Department Care Team Description 11/02/2013 Production Artist Report Medical Records [address] [place] [address] Social History Tobacco Use Types Packs/Day Years [...] on filedocumented in this encounter Care Teams Associate Art Director Relationship Specialty Start Date End Date Ministerio [...]
--- OUTSIDE RECORDS SUMMARY | 2025-06-01 16:04 | XMS_ITS | Clinical Summary ---
Author Organization [facility] Address [address] [place] [address] Care Team Providers Care Cycle Liaison Name Role Phone Leslye Greenberg MD Primary Care Provider Un available Allergies Active Allergy Reactions Severity Noted Date Comments Acetophenazine 07/19/2021 Bee Stings 12/30/2011 Honey Flavor 09/26/2008 Latex 09/26/2008 Magnesium Salicylate 09/26/2008 Nuts 09/26/2008 Peanuts 12/30/2011 Seasonal Allergies 09/26/2008 Shell Fish 09/26/2008 Sulfa Drugs 07/19/2021 Medications Medication Sig Dispensed Refills Start Date End Date Status EPINEPHrine (EpiPen 2-Deshaun) 0.3 MG/0.3ML Solution Auto-injector Inject 1 Device as directed as needed for Other. 1 Each 2 06/19/2021 Active ALBUTEROL SULFATE 108 (90 Base) MCG/ACT Aero Soln Inhale 2 Puffs into the lungs every 4 hours as needed for Cough, Wheezing or Shortness of Breath. 25.5 g 1 04/06/2024 Active Active Problems Problem Noted Date Reactive airway disease 06/19/2021 Benign hematuria 06/18/2016 Mild intermittent asthma without complic ation 04/28/2015 Multiple allergies 08/12/2014 Psoriasis 08/12/2014 History of kidney stones 08/12/2014 Resolved Problems Problem Noted Date Resolved Date Seasonal allergic rhinitis 08/12/201408/12 Appendicolith 03/06/2012 07/09/2012 Chronic cholecystitis 03/06/2012 07/09/2012 Kidney stone 01/19/2010 08/12/2014 Overview: 01/2010 Headache 11/08/2008 08/12/2014 Wheezing 11/08/2008 08/12/2014 Neck pain 08/12/2014 Overview: wit bilateral numbness and pain Immunizations Name Administration Dates Next Due COVID-19 (Moderna) 04/23/2021,03/26/2021 DTP 06/15/1979,04/30/1979 Hepatitis B > 19yrs 08/25/2000,04/02/2000,1999 Influenza (> 6 Months) 05/10/2016,2014,05/18/2014,05/27,04/15/2012,05/10/2011,06/01/2010 Influenza Vaccine-quadrivale nt 4 Years Plus 05/06/2017 MMR (Rpyofdt-Rqrzz-Waucvjw) 03/26/1979 PPD-Negative Response(External) 02/22/1994 Pneumoccoccal(Adult) Polysac charide PPSV23 11/08/2008 Polio (OPV) 06/15/1979,04/30/1979 Tdap 11/11/2008 Tetanus Toxoid 11/18/1989 Family History Medical History Relation Name Comments Crohn's Disease Son Relation Name Status Comments Daughter Alive 1991-Type II DM , asthma Father Alive RA Maternal Grandfather Maternal Grandmother Alive healthy Mother Alive asthma, HTN, fi bromyalgia neuropathy, gastroparesis Paternal Grandfather (Age ?) Mil itary duty Paternal Grandmother (Age 78) [place] Sister 1 Alive Margaret-murmur Sister 2 (Age 12) cerebral p alsy and [place] Sister 3 Alive [facility] y Son Alive Asthma Social History Tobacco Use Types Packs/Day Years Used Date Smoking Tobacco: Never Smokeless Tobacco: Never Alcohol Use Standard Drinks/Week Comments No 0 (1 standard drink = 0.6 oz pur e alcohol) Sex Assigned at Date Recorded Female 02/22/2021 3:16 PM E DT Last Filed Vital Signs Vital Sign Reading Time Taken Comments Blood Pressure 102/58 04/22/2023 8:57 AM EDT Pulse 98 04/22/2023 8:57 AM EDT Temperature 36.7 C (98.1 F) 04/22/2023 8:57 AM EDT Respiratory Rate 16 07/21/2020 2:16 PM EST Oxygen Saturation 98% 07/21/2020 2:16 PM EST Inhaled Oxygen Concentration - - Weight 59.4 kg (131 lb) 04/22/2023 8:57 AM EDT Height 149.9 cm (4' 11 ) 04/22/2023 8:57 AM EDT Body Mass Index 26.46 04/22/2023 8:57 AM EDT Plan of Treatment Health Maintenance Due Date Last Done Comments HEPATITIS C SCREENING 1992 DTAP/TDAP/TD (4 - Td or Tdap) 11/11/2018, 06/15/1979, 04/30/1979 MAMMOGRAM 10/04/2023 10/03/2022 (Exte rnal Completion), 07/18/2021 (External Completion) COLON CANCER SCREENING 2024 SHINGLES VACCINE (1 of 2) 2024 BMI CHECK/ADVISE 07/14/2024 04/22/2023, 07/19/2021 CERVICAL CANCER SCREENING 07/17/20242021 (External Completion), 05/18/2012 (External Completion of test per patient (Patient reports normal results)) Covid-19 Vaccine (3 - 2022-2 4 season) 2025 04/23/2021, 03/26/2021 INFLUENZA (#1) 2025 05/06/2017, 04/14, 05/31/2015, Additional history exists BASELINE HEALTH EXAM 40-64 04/22/202504/22, 04/22/2023, 07/19/2021, Additional history exists CHOLESTEROL SCREENING 04/22/2028 04/22/2023 , 08/12/2014, 08/12/2014, Additional history exists PNEUMOCOCCAL VACCINE FOR HIG H RISK PATIENTS (#2) 2039 11/08/2008 Care Teams Cycle Liaison Relationship Specialty Start Date End Date Leslye Greenberg MD PCP - General Internal Medicine 04/23/24
--- OUTSIDE RECORDS SUMMARY | 2025-06-01 16:04 | XMS_ITS | Encounter Summary ---
Author Organization [facility] Address [address] [place] [address] Care Team Providers Care Elastic Assembler Name Role Phone Aranza Amezquita MD Primary Care Provider Eulalio Muse MD Primary Care Provider Earl Marin DO Primary Care Provider Leslye Fu MD Primary Care Provider Un available Encounter Details Date Type Department Care Team Description 09/18/2017 Pt. Non Urgent Medic al Question Medicine/Pediatrics - [address] [phone] Matilde Cain MD Social History Tobacco Use Types Packs/Day Years Used Date Smoking Tobacco: Never Smokeless Tobacco: Never Alcohol Use Standard Drinks/Week Comments No 0 (1 standard drink = 0.6 oz pur e alcohol) Sex Assigned at Date Recorded Female 02/22/2021 3:16 PM E DT documented as of this encounter Progress Notes * Anne Mcpherson L.P.N. - 09/18/2017 9:28 AM ESTFrom: Rahel Galicia To: Matilde Cain MD Sent: 09/18/2017 9:26 AM EST Subject: medication refill I need a refill on my Albuterol updraft medication, my chest feels really tight today and I feel like I need to start taking my medicine. Please contact me if you have questions. thank you documented in this encounter Plan of Treatment Not on file documented as of this encounter Visit Diagnoses Not on filedocumented in this encounter Care Teams Elastic Assembler Relationship Specialty Start Date End Date Aranza Amezquita MD PCP - General Internal Medicine 08/21/15 04/04/21 Eulalio Mcqueen MD PCP - General Internal Medicine 04/05/21 06/20/21 Earl Angeles DO PCP - General Internal Medicine 06/21/21 04/22/24 Leslye Greenberg MD PCP - General Internal Medicine 04/23/24 documented as of this encounter
--- OUTSIDE RECORDS SUMMARY | 2025-06-01 16:04 | XMS_ITS | Encounter Summary ---
Author Organization [facility] Address [address] [place] [address] Care Team Providers Care Bean Sprout Laborer Name Role Phone Ministerio Barnhart MD Primary Care Provider Unavail able Aranza Amezquita MD Primary Care Provider Eulalio Muse MD Primary Care Provider Earl Marin DO Primary Care Provider Unavaila Leslye Selby MD Primary Care Provider Un available Encounter Details Date Type Department Care Team Description 11/04/2010 Inspector Report Medical Records [address] [place] [id number] Anthony Rao MD Social History Tobacco Use Types Packs/Day Years Used Date Smoking Tobacco: Never Alcohol Use Standard Drinks/Week Comments No 0 (1 standard drink = 0.6 oz pur e alcohol) Sex Assigned at Date Recorded Female 02/22/2021 3:16 PM E DT documented as of this encounter Plan of Treatment Not on file documented as of this encounter Visit Diagnoses Not on filedocumented in this encounter Care Teams Bean Sprout Laborer Relationship Specialty Start Date End Date Ministerio [...]
--- OUTSIDE RECORDS SUMMARY | 2025-06-01 16:04 | XMS_ITS | Encounter Summary ---
Author Organization [facility] Address [address] [place] [address] Care Team Providers Care Speech Pathologist Name Role Phone Aranza Amezquita MD Primary Care Provider Eulalio Muse MD Primary Care Provider Earl Marin DO Primary Care Provider UnavailLeslye Manzanares MD Primary Care Provider Un available Reason for Referral * EXTERNAL (Routine) - Authorized/Booked Specialty Diagnoses / Procedures Referred By Yahaira [place] Referred To Contact Physical Therapy Procedures REFERRAL TO PHYSICAL THERAPY Matilde Cain MD [address] [place] [id number] External Phys Thrpy Referral ID Status Reason Start Date Expiration Date V isits Requested Visits Authorized SEE NOTE Authorized/B ooked 01/16/2017 04/18/2017 1 1 Encounter Details Date Type Department Care Team Description 01/16/2017 Pt. Non Urgent Medic al Question Medicine/Pediatrics - [address] [phone] Matilde Cain MD Social History Tobacco Use Types Packs/Day Years Used Date Smoking Tobacco: Never Smokeless Tobacco: Never Alcohol Use Standard Drinks/Week Comments No 0 (1 standard drink = 0.6 oz pur e alcohol) Sex Assigned at Date Recorded Female 02/22/2021 3:16 PM E DT documented as of this encounter Progress Notes * Anne Mcpherson L.P.N. - 01/16/2017 12:25 PM EDTFrom: Rahel Galicia To: Matilde Cain MD Sent: 01/16/2017 12:15 PM EDT Subject: Lower back pain Hello Dr. Cain, I saw you a couple of weeks ago regarding some lower back pain. I'm still not better. I was wondering if you could give me a referral for physical therapy. Respectfully Mrs. Galicia documented in this encounter Plan of Treatment Not on file documented as of this encounter Visit Diagnoses Not on filedocumented in this encounter Care Teams Speech Pathologist Relationship Specialty Start Date End Date Aranza Amezquita MD PCP - General Internal Medicine 08/21/15 04/04/21 Eulalio Mcqueen MD PCP - General Internal Medicine 04/05/21 06/20/21 Earl Angeles DO PCP - General Internal Medicine 06/21/21 04/22/24 Leslye Greenberg MD PCP - General Internal Medicine 04/23/24 documented as of this encounter
--- OUTSIDE RECORDS SUMMARY | 2025-06-01 16:04 | XMS_ITS | Encounter Summary ---
Author Organization [facility] Address [address] [place] [address] Care Team Providers Care Wirer Passenger Car Name Role Phone Aranza Amezquita MD Primary Care Provider Eulalio Muse MD Primary Care Provider Earl Marin DO Primary Care Provider Unavaila Leslye Selby MD Primary Care Provider Un available Encounter Details Date Type Department Care Team Description 08/27/2018 Radiation Protection Engineer Report Medical Records [address] [place] [id number] Morena Lazo PA-C Social History Tobacco Use Types Packs/Day Years [...] on filedocumented in this encounter Care Teams Wirer Passenger Car Relationship Specialty Start Date End Date Aranza Amezquita MD PCP - General Internal Medicine 08/21/15 04/04/21 Eulalio Mcqueen MD PCP - General Internal Medicine 04/05/21 06/20/21 Earl Angeles DO PCP - General Internal Medicine 06/21/21 04/22/24 Leslye Greenberg MD PCP - General Internal Medicine 04/23/24 documented as of this encounter
--- OUTSIDE RECORDS SUMMARY | 2025-06-01 16:04 | XMS_ITS | Data Portability ---
Author Organization [facility]EL[facility]O [facility]eta [facility] [address] Address [address] [place] [address] Care Team Providers Care Transmission Specialist Name Role Phone MCKAY LUIS EDUARDO Primary Care Provider Assessment No assessment recorded. Plan of Treatment Reminders Order Date Submit Date Provider Last Modified By Organization Details Last Modified Time Details Appointments None recorded. Lab rapid flu (A+B) 2024 025 [email or web address] 247 _[facility], [address] [place] [address], [phone], 5 09:14:28 SARS CoV 2 (COVID-19) Ag, QL, IA, upper respiratory specimen 2024 025 [email or web address] 247 _[facility], [address] [place] [address], [phone], 5 09:14:28 Referral None recorded. Procedures None recorded. Surgeries None recorded. Imaging None recorded. Medication Orders None recorded. Patient TargetsNo targets recorded. Patient Instructions Encounter Date Encounter Id Patient Instructions Last Modified By Organization Details Last Modified Time 08/07/2024 [id number] If you test positive for COVID-19, stay home for at least 5 days and isolate from others in your home. You are likely most infectious during these first 5 days. Wear a high-quality mask if you must be around others at home and in public. Do not go places where you are unable to wear a mask. For travel guidance, see [facility] s Travel webpage. Do not [...] masking (see below). For travel guidance, see [facility] s Travel webpage. [email or web address] Not available 08/07/2024 09:03:46 Reason for Referral None Reported. Results Created Date Observation Date Name Description Value Unit Range Abnormal Flag Note LastModifiedBy Organization Detail LastModifiedTime 08/07/1908/07/2024 rapid flu (A+B) Unknown Analyte negati ve Not Available ie [address], [address], 08/07/2024 08:44:23 08/07/19 25 08/07/2024 rapid flu (A+B) Unknown Analyte negati ve Not Available ie [address], [address], 08/07/2024 08:44:23 08/07/19 25 08/07/2024 rapid flu (A+B) Unknown Analyte n Not Available [address], [address], 08/07/2024 08:44:23 08/07/19 25 08/07/2024 rapid flu (A+B) Unknown Analyte yes Not Available [address] [place] [address], [address], 08/07/2024 08:44:23 08/07/1908/07/2024 SARS CoV 2 (COVI D-19) Ag, QL, IA, upper respi rator y speci men Unknown Analyte positi ve Not Available [address] [place] [address], [phone], 08/07/2024 08:52:11 08/07/1908/07/2024 SARS CoV 2 (COVI D-19) Ag, QL, IA, upper respi rator y speci men Unknown Analyte n Not Available [address] [place] [address], [phone], 08/07/2024 08:52:11 08/07/1908/07/2024 SARS CoV 2 (COVI D-19) Ag, QL, IA, upper respi rator y speci men Unknown Analyte yes Not Available [address] [place] [address], [phone], 08/07/2024 08:52:11 Result Notes None recorded. Problems Name Problem SNOMED Code Status Onset Date Resolution Date Notes Provider Name and Address Organization Details Recorded Time Asthma 187089342 Active Frank anderson PA - [facility] 08/07/2024 08:42:02 Problem Notes None recorded. Medical Equipment None Reported. Allergies Allergen ID Allergen Name Allergen Category Reaction Reaction Severity Criticality Documentation Date Start Date Code Code System Note Provider Name and Address Organization Details Recorded Time 4747067 Substance with sulfonami de structure and antibacte rial mechanism of action (substanc e) medicatio n itching Not available Not available 08/07/2024 75611 8003 SNOMED Frank anderson PA - [facility] 08:40:25 6092143 latex environme nt,medica tion rash Not available Not available 08/07/2024 24625 91 RxNorm Frank Park monica PA - [facility] 5 08:40:42 7856867 peanut allergeni c extract food,medi cation edema Not available Not available 08/07/2024 03428 8 RxNorm Frank Park monica, PA - [facility] 5 08:41:05 1286422 shellfish derived food,medi cation edema Not available [...] Last Updated DateTime 149.86 cm 25.2 kg/m2 00518.0 5 g 99 % 99 % 110 [...] ICD10 Code Diagnosis IMO Codes Diagnosis Note [id number] 2099[facility] [address] [address] 11/17/2018 16:22:28 11/17/2018 18:02:[id number] [place] [address] [address] [facility] [address] 10/09/2015 09:17:19 10/09/2015 09:55:55 [id number] 2099_[facility] [address] [address] 09/15/2019 15:39:13 09/15/2019 16:42:[id number] [place] [address] [address] [facility] [address] 07/19/2016 12:17:31 07/19/2016 13:34:38 [id number] [facility] [address] [place] [address] 09/20/2019 16:06:36 09/20/2019 16:49:[id number] [place], [place] [address] [place] [address] 05/10/2019 16:10:32 05/10/2019 16:53:40 [id number] [facility] [address] [place] [address] 03/16/2016 09:36:07 03/16/2016 10:31:[id number] [place], [place] [address] [place] [address] 07/17/2017 13:06:30 07/17/2017 13:47:[id number] [place], [place] [address] [address] [place] [address] 08/24/2019 08:20:12 08/24/2019 09:12:[id number] [place], [place] [address] [address] [place] [address] 03/05/2021 11:54:04 03/05/2021 13:01:29 [id number] PREET BANKS MD [address] [place] [phone] 08/07/2024 08:24:38 08/07/2024 09:08:27 [facility] [id number] R05.9 Health Concerns Section Related Observation LastModified by Organization Detai ls LastModified Time None Recorded Concern Status LastModified by Organization Details LastModified Time None Recorded Advance Directives Directive None Recorded Payers Insurance Date Sequence Insurance Name Policy Number Policy Pike Covered Member ID Pike Member ID Guarantor Name 08/07/2024 1 [place] [id number] Rahel Galicia [id number] Rahel Galicia Notes Date Note Type [...] PREET BANKS MD [address] [place], [address], PA - [facility] 08/07/2024 09:14:31 OBGyn Episode No OBEpisode recorded.
--- OUTSIDE RECORDS SUMMARY | 2025-06-01 16:04 | XMS_ITS | Encounter Summary ---
Author Organization [facility] Address [address] [place] [address] Care Team Providers Care Mercantile Agent Name Role Phone Ministerio Barnhart MD Primary Care Provider Unavail able Aranza Amezquita MD Primary Care Provider Eulalio Muse MD Primary Care Provider Earl Marin DO Primary Care Provider UnavailLeslye Manzanares MD Primary Care Provider Un available Encounter Details Date Type Department Care Team Description 07/30/2012 Pt. Referral Request [address] [address] Md Julien Social History Tobacco Use Types Packs/Day Years [...] on filedocumented in this encounter Care Teams Mercantile Agent Relationship Specialty Start Date End Date Ministerio [...]
--- OUTSIDE RECORDS SUMMARY | 2025-06-01 16:04 | XMS_ITS | Encounter Summary ---
Author Organization [facility] Address [address] [place] [address] Care Team Providers Care Automatic Clipper And Stripper Name Role Phone Aranza Amezquita MD Primary Care Provider Eulalio Muse MD Primary Care Provider Earl Marin DO Primary Care Provider Leslye Fu MD Primary Care Provider Un available Encounter Details Date Type Department Care Team Description 11/18/2016 Pt. Non Urgent Medical Question Medicine/Pediatrics - [address] [address] Aranza Amezquita MD Social History Tobacco Use Types Packs/Day Years Used Date Smoking Tobacco: Never Smokeless Tobacco: Never Alcohol Use Standard Drinks/Week Comments No 0 (1 standard drink = 0.6 oz pur e alcohol) Sex Assigned at Date Recorded Female 02/22/2021 3:16 PM E DT documented as of this encounter Progress Notes * Anne GonzalesP.NRadha - 11/18/2016 9:38 AM EDTFrom: Rahel Galicia To: Aranza Oconnell MD Sent: 11/18/2016 9:23 AM EDT Subject: Should I make appointment Hi, I was working out on of last week and popped something in my lower back. My massage therapist thinks its a popped facet. I can feel pain on lower left side and it radiates down my left leg. Should I be seen? or can i my message therapist whom I am seeing tomorrow realign me? Rahel Galicia 73 documented in this encounter Plan of Treatment Not on file documented as of this encounter Visit Diagnoses Not on filedocumented in this encounter Care Teams Automatic Clipper And Stripper Relationship Specialty Start Date End Date Aranza Amezquita MD PCP - General Internal Medicine 08/21/15 04/04/21 Eulalio Mcqueen MD PCP - General Internal Medicine 04/05/21 06/20/21 Earl Angeles DO PCP - General Internal Medicine 06/21/21 04/22/24 Leslye Greenberg MD PCP - General Internal Medicine 04/23/24 documented as of this encounter
--- OUTSIDE RECORDS SUMMARY | 2025-06-01 16:04 | XMS_ITS | Encounter Summary ---
Author Organization [facility] Address [address] [place] [address] Care Team Providers Care Cad Developer Name Role Phone Ministerio Barnhart MD Primary Care Provider Unavail able Aranza Amezquita MD Primary Care Provider Eulalio Muse MD Primary Care Provider Earl Marin DO Primary Care Provider Unavaila Leslye Selby MD Primary Care Provider Un available Encounter Details Date Type Department Care Team Description 10/26/2012 Viscosity Tester Report Medical Records [address] [place] [address] Anthony Rao MD Social History Tobacco Use [...] on filedocumented in this encounter Care Teams Cad Developer Relationship Specialty Start Date End Date Ministerio [...]
--- OUTSIDE RECORDS SUMMARY | 2025-06-01 16:04 | XMS_ITS | Encounter Summary ---
Author Organization [facility] Address [address] [place] [address] Care Team Providers Care Individualized Education Plan Aide Name Role Phone Aranza Amezquita MD Primary Care Provider Eulalio Muse MD Primary Care Provider Earl Marin DO Primary Care Provider Unavaila Leslye Selby MD Primary Care Provider Un available Reason for Visit * Reason Onset Date Comments Form 03/04/2017 Encounter Details Date Type Department Care Team Description 03/04/2017 Telephone Medicine/Pediatrics - [address] [phone] Aranza Amezquita MD Form Social History Tobacco Use Types Packs/Day Years Used Date Smoking Tobacco: Never Smokeless Tobacco: Never Alcohol Use Standard Drinks/Week Comments No 0 (1 standard drink = 0.6 oz pur e alcohol) Sex Assigned at Date Recorded Female 02/22/2021 3:16 PM E DT documented as of this encounter Miscellaneous Notes * Telephone Encounter - Linwood June M.A. - 03/04/2017 2:[address] Cain for sig as she ref'd pt * Telephone Encounter - Sabiha Huitronkarol - 03/04/2017 11:09 AM EDT Received by fax a form from [facility] Physical [facility] to be filled out and signed by In call center bin, thank you! documented in this encounter Plan of Treatment Not on file documented as of this encounter Visit Diagnoses Not on filedocumented in this encounter Care Teams Individualized Education Plan Aide Relationship Specialty Start Date End Date Aranza Amezquita MD PCP - General Internal Medicine 08/21/15 04/04/21 Eulalio Mcqueen MD PCP - General Internal Medicine 04/05/21 06/20/21 Earl Angeles DO PCP - General Internal Medicine 06/21/21 04/22/24 Leslye Greenberg MD PCP - General Internal Medicine 04/23/24 documented as of this encounter
--- OUTSIDE RECORDS SUMMARY | 2025-06-01 16:05 | XMS_ITS | Encounter Summary ---
Author Organization [facility] Address [address] [place] [address] Care Team Providers Care Elevator Dispatcher Name Role Phone Ministerio Barnhart MD Primary Care Provider Unavail able Aranza Amezquita MD Primary Care Provider Eulalio Msue MD Primary Care Provider Earl Marin DO Primary Care Provider Unavaila Leslye Selby MD Primary Care Provider Un available Encounter Details Date Type Department Care Team Description 10/07/2011 Renewable Energy Division Manager Report Medical Records [address] [place] [address] Patrick Schneider Social History Tobacco Use Types Packs/Day Years [...] on filedocumented in this encounter Care Teams Elevator Dispatcher Relationship Specialty Start Date End Date Ministerio [...]
--- OUTSIDE RECORDS SUMMARY | 2025-06-01 16:05 | XMS_ITS | Encounter Summary ---
Author Organization [facility] Address [address] [place] [address] Care Team Providers Care Program Director/Morning Show Host Name Role Phone Aranza Amezquita MD Primary Care Provider Eulalio Muse MD Primary Care Provider Earl Marin DO Primary Care Provider Leslye Fu MD Primary Care Provider Un available Encounter Details Date Type Department Care Team Description 07/25/2020 Pt. 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 Thank you Hilton Galicia documented in this encounter Plan of Treatment Not on file documented as of this encounter Visit Diagnoses Not on filedocumented in this encounter Care Teams Program Director/Morning Show Host Relationship Specialty Start Date End Date Aranza Amezquita MD PCP - General Internal Medicine 08/21/15 04/04/21 Eulalio Mcqueen MD PCP - General Internal Medicine 04/05/21 06/20/21 Earl Angeles DO PCP - General Internal Medicine 06/21/21 04/22/24 Leslye Greenberg MD PCP - General Internal Medicine 04/23/24 documented as of this encounter
--- OUTSIDE RECORDS SUMMARY | 2025-06-01 16:05 | XMS_ITS | Patient Health Record ---
Author Organization [facility] Address [address] [place] [address] Care Team Providers Care Habitat Conservation Planner Name Role Phone GERMÁN GONZALES Unavailable [phone] Allergies Allergen (clinical drug ingredient) Drug/Non Drug [...] Status Risk Notes Problem Uncomplicated asthma (disorder) (933847418) Unspecified asthma, uncomplicated (J45.909) Active confirmed Problem Psoriasis (7486643) Psoriasis, unspecified (L40.9) Active confirmed Problem Alopecia areata (68453477) Alopecia areata, unspecified (L63.9) Active confirmed Problem Calculus of kidney (54652786) Calculus of kidney (N20.0) Active confirmed Problem COVID-19 (693653702) COVID-19 (U07.1) Active confirmed Problem Gynecological examination normal (476424806903298) Routine gynecological examination (V72.31) Active confirmed Diag Vital Signs Temperature 97.7 degrees Fahrenheit 12/09/2024 Blood pressure diastolic 74 mm Hg 12/09/2024 Height 59.75 in 12/09/2024 Blood pressure systolic 122 mm Hg 12/09/2024 Weight 122 lbs 12/09/2024 BMI 24.02 kg/m2 12/09/2024 Encounters Encounter Location Date Provider Diagnosis [address] [place] [address] 12/09/2024 GERMÁN GONZALES Encounter for gynecological examination [...] Provider Name:GERMÁN Olvera, 12/13/2025 08:30:00 AM, [address] [facility], [address], [place], [address], Insurance Providers Payer Name Payer Address Payer Phone Subscriber Number Group Number Insured Name Patient Relationship to Insured Coverage Start Date Coverage End Date [employer] [place] [address] [place] [address] [id number] BISI HILARIO Self - patient is the insured Medical (General) History Medical History History ICD Code Calculus of kidney N20.0 Unspecified asthma, uncomplicated J45.90 9 Psoriasis, unspecified L40.9 Alopecia areata, unspecified L63.9 COVID-19 U07.1 Surgical History Surgery Date(Month/Year) BTL 08/1998 Cholecystectomy/Appendectomy Right breast biopsy - [facility] 09/2021 Removal of kidney stone 07/2022 Hospitalization History Reason Date(Month/Year) Childbirth
--- OUTSIDE RECORDS SUMMARY | 2025-06-01 16:05 | XMS_ITS ---
Author Name [facility] Organization Unknown Encounters Encounter Type Encounter Reason Primary Diagnosis Location Date Ambulatory [facility]. ([facility]) 08/07/2024 Care Team Organization Name Specialty Phone Email Start Date End Da te Office of the Nurse Practitioner Physician Assistant ([facility]) 03/29/2025 [facility] Earl Angeles DO Primary Care 05/21/202202/11
--- OUTSIDE RECORDS SUMMARY | 2025-06-01 16:05 | XMS_ITS | Encounter Summary ---
Author Organization [facility] Address [address] [place] [address] Care Team Providers Care Solar Sales Energy Advisor Name Role Phone Aranza Amezquita MD Primary Care Provider Eulalio Muse MD Primary Care Provider Earl Marin DO Primary Care Provider Leslye Fu MD Primary Care Provider Un available Encounter Details Date Type Department Care Team Description 03/02/2019 Pt. Non Urgent Medic al Question Medicine/Pediatrics - [address] [address] Matilde Cain MD Social History Tobacco Use Types Packs/Day Years Used Date Smoking Tobacco: Never Smokeless Tobacco: Never Alcohol Use Standard Drinks/Week Comments No 0 (1 standard drink = 0.6 oz pur e alcohol) Sex Assigned at Date Recorded Female 02/22/2021 3:16 PM E DT documented as of this encounter Progress Notes * Anne GonzalesP.N. - 03/02/2019 12:44 PM EDTFrom: Rahel Galicia To: Matilde Cain MD Sent: 03/02/2019 12:33 PM EDT Subject: Ear pain Hi, I???m on vacation in [place]. I woke up with ear pain. Went to urgent care and he said my ear was not red but was in bulging. He gave me amoxicillin to take. Should I take medication if I don???t edward e infection? Ibuprofen relieves pain. Another question is if I can take amoxicillin based on medical history. I don???t want to take anything that is going to make me sick while on vacation. Please get back to me as your earliest convenience. Rahel Galicia documented in this encounter Plan of Treatment Not on file documented as of this encounter Visit Diagnoses Not on filedocumented in this encounter Care Teams Solar Sales Energy Advisor Relationship Specialty Start Date End Date Aranza Amezquita MD PCP - General Internal Medicine 08/21/15 04/04/21 Eulalio Mcqueen MD PCP - General Internal Medicine 04/05/21 06/20/21 Earl Angeles DO PCP - General Internal Medicine 06/21/21 04/22/24 Leslye Greenberg MD PCP - General Internal Medicine 04/23/24 documented as of this encounter
--- OUTSIDE RECORDS SUMMARY | 2025-06-01 16:05 | XMS_ITS | Encounter Summary ---
Author Organization [facility] Address [address] [place] [address] Care Team Providers Care Agile Developer Name Role Phone Aranza Amezquita MD Primary Care Provider Eulalio Muse MD Primary Care Provider Earl Marin DO Primary Care Provider Leslye Fu MD Primary Care Provider Un available Encounter Details Date Type Department Care Team Description 09/10/2020 Pt. Non Urgent Medic al Question Adult Medicine [address] [address] Matilde Cain MD Social History Tobacco Use Types Packs/Day Years Used Date Smoking Tobacco: Never Smokeless Tobacco: Never Alcohol Use Standard Drinks/Week Comments No 0 (1 standard drink = 0.6 oz pur e alcohol) Sex Assigned at Date Recorded Female 02/22/2021 3:16 PM E DT documented as of this encounter Miscellaneous Notes * Telephone Encounter - Kishor Valdes R.N. 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 They will not be until October. I am very nervous about getting my vaccine. I was wondering, since I have a lot of different allergies, should I get my vaccine in your office or should I make an appointment through my school? Please advise. documented in this encounter Plan of Treatment Not on file documented as of this encounter Visit Diagnoses Not on filedocumented in this encounter Care Teams Agile Developer Relationship Specialty Start Date End Date Aranza Amezquita MD PCP - General Internal Medicine 08/21/15 04/04/21 Eulalio Mcqueen MD PCP - General Internal Medicine 04/05/21 06/20/21 Earl Angeles DO PCP - General Internal Medicine 06/21/21 04/22/24 Leslye Greenberg MD PCP - General Internal Medicine 04/23/24 documented as of this encounter
--- OUTSIDE RECORDS SUMMARY | 2025-06-01 16:05 | XMS_ITS | Encounter Summary ---
Author Organization [facility] Address [address] [place] [address] Care Team Providers Care Outside Parts Sales Name Role Phone Aranza Amezquita MD Primary Care Provider Eulalio Muse MD Primary Care Provider Earl Marin DO Primary Care Provider Unavaila Leslye Selby MD Primary Care Provider Un available Encounter Details Date Type Department Care Team Description 11/25/2019 Sales Operations Director Report Medical Records [address] [place] [address] Morena Lazo PA-C Social History Tobacco Use [...] on filedocumented in this encounter Care Teams Outside Parts Sales Relationship Specialty Start Date End Date Aranza Amezquita MD PCP - General Internal Medicine 08/21/15 04/04/21 Eulalio Mcqueen MD PCP - General Internal Medicine 04/05/21 06/20/21 Earl Angeles DO PCP - General Internal Medicine 06/21/21 04/22/24 Leslye Greenberg MD PCP - General Internal Medicine 04/23/24 documented as of this encounter
--- OUTSIDE RECORDS SUMMARY | 2025-06-01 16:05 | XMS_ITS | Encounter Summary ---
Author Organization [facility] Address [address] [place] [address] Care Team Providers Care Scagliola Mechanic Name Role Phone Aranza Amezquita MD Primary Care Provider Eulalio Muse MD Primary Care Provider Earl Marin DO Primary Care Provider Leslye Fu MD Primary Care Provider Un available Encounter Details Date Type Department Care Team Description 02/05/2020 Pt. Non Urgent Medic al Question Medicine/Pediatrics - [address] [address] Matilde Cain MD Social History Tobacco Use Types Packs/Day Years Used Date Smoking Tobacco: Never Smokeless Tobacco: Never Alcohol Use Standard Drinks/Week Comments No 0 (1 standard drink = 0.6 oz pur e alcohol) Sex Assigned at Date Recorded Female 02/22/2021 3:16 PM E DT documented as of this encounter Progress Notes * Anne GonzalesP.N. 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 Due to my asthma and other medical issues, my school would likeme to continue working remotely from home, but I would need a letter from my doctor [facility] that would be what is best for me. 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 Respectfully Rahel Galicia documented in this encounter Plan of Treatment Not on file documented as of this encounter Visit Diagnoses Not on filedocumented in this encounter Care Teams Scagliola Mechanic Relationship Specialty Start Date End Date Aranza Amezquita MD PCP - General Internal Medicine 08/21/15 04/04/21 Eulalio Mcqueen MD PCP - General Internal Medicine 04/05/21 06/20/21 Earl Angeles DO PCP - General Internal Medicine 06/21/21 04/22/24 Leslye Greenberg MD PCP - General Internal Medicine 04/23/24 documented as of this encounter
--- OUTSIDE RECORDS SUMMARY | 2025-06-01 16:05 | XMS_ITS | Encounter Summary ---
Author Organization [facility] Address [address] [place] [address] Care Team Providers Care Licensed Practical Nurse Clinic Nurse Name Role Phone Ministerio Barnhart MD Primary Care Provider Unavail Aranza Byers MD Primary Care Provider Eulalio Muse MD Primary Care Provider Earl Marin DO Primary Care Provider Leslye Fu MD Primary Care Provider Un available Encounter Details Date Type Department Care Team Description 01/27/2012 Pt. Non Urgent Medical Question Adult Urgent Care - [address] [address] Nicolette Mcgarry PA-C Social History Tobacco Use Types Packs/Day Years Used Date Smoking Tobacco: Never Smokeless Tobacco: Never Alcohol Use Standard Drinks/Week Comments No 0 (1 standard drink = 0.6 oz pur e alcohol) Sex Assigned at Date Recorded Female 02/22/2021 3:16 PM E DT documented as of this encounter Progress Notes * Desi Romeo L.P.N. - 01/27/2012 12:46 PM EDTFrom: RAHEL SINGH To: Nicolette Mcgarry PA-C Sent: FriJan 27, 2012 10:56 AM Subject: Surgery I was seen on January [address] Burton for gallbladder pain and I was told that they would call me to schedule the surgery and I haven't heard anything from them. I would like to have surgery before having to return to work. Could you please let me know what is going on. documented in this encounter Plan of Treatment Not on file documented as of this encounter Visit Diagnoses Not on filedocumented in this encounter Care Teams Licensed Practical Nurse Clinic Nurse Relationship Specialty Start Date End Date Ministerio [...]
== END 2025-06-01 09:58 | disposition home or self-care (01) ==
LOC: HO.HMCFM 08:23
PROVIDERS: PCP Physician Assistant; Visit Provider Physician Assistant
DX: R10.9 Unspecified abdominal pain (principal); D50.9 Iron deficiency anemia, unspecified

== ENCOUNTER 2025-06-29 12:47 | Outpatient (AMB) | payer BC, SELFPAY ==
--- NOTE | 2025-06-29 12:56 | A.OFFPC_ITS ---
Vital Signs 06/29/25 13:01 Height 4 ft 6 in Weight 124 lb BMI 29.9 BP 102/68 Blood Pressure Location Rt brachial Position Sitting Respiration 14 Pulse 87 Pulse Source Pulse Oximeter Temp 98.5 F Temp Source Temporal Artery Scan Pulse Oximetry (%) 98 Oxygen Delivery Method Room Air Intake Visit Reasons: cpe Intake Note: Aditi presents in the office today for her annual physical. Crime Investigator Special Agent Required: No Is last menstrual period known: Yes Last menstrual period: 06/29/25 Post menopausal: No Patient : No Allergies shellfish derived (shellfish) Allergy (Severe, Verified 06/29/25 13:00) Anaphylaxis tree nut Allergy (Severe, Verified 06/29/25 13:00) Anaphylaxis pseudoephedrine Allergy (Mild, Verified 06/29/25 13:00) Headache Sulfa (Sulfonamide Antibiotics) Allergy (Unknown, Verified 06/29/25 13:00) Unknown acetaminophen (From Tylenol) Allergy (Verified 06/29/25 13:00) Vomiting peanuts Allergy (Severe, Uncoded 06/29/25 13:00) Anaphylaxis salmon Allergy (Severe, Uncoded 06/29/25 13:00) Anaphylaxis Medication List - Last Reconciled 06/29/25 by Gregoria Tyler PA-C albuterol sulfate 90 mcg/actuation 2 puffs inhalation Q6H PRN cyanocobalamin (vitamin B-12) (Vitamin B-12) 1,000 mcg PO DAILY epinephrine 0.3 mg (0.3 mL) IM Q10M PRN ferrous sulfate 325 mg PO DAILY polyethylene glycol 3350 (Miralax) 238 grams PO ONCE Tobacco use date assessed: 06/29/25 Dental Screening Dental Screen Date: 06/29/25 Did you have a dental visit in the last 12 months?: No Did you have a dental problem in the last 6 months where you did not have access to dental care?: No Was dental information given to patient?: Patient declined HPI cpe HPI Details Patient is a 50-year-old female who presents today for a physical exam. She has a hx of renal stones, hematuria, asthma, seasonal allergies, vit d deficiency and anxiety. Heme: Following with Hematology for anemia and with GI for the anemia. Compliant with iron and B12 supplement Pulm: She has RAD at change of season and winter specifically is harder. CV: Blood pressure today in the office is 102/68. No chest pain, shortness on breath or palpitations. Cholesterol has always been diet controlled. GI: Recently has a stomach bug and currently feeling well. Scheduled for an abdominal ultrasound in July and colonoscopy at the end of this month. Uro: PVU has stones and has had to have surgical interventions. She sees them annually. Last scan showed 1 stone in left kidney in 08/07. Psych: She states that she does suffer from anxiety and paranoia. She follows with a therapist when she can. Crime Scene Investigator: Dr. Oviedo ([facility]), still has menses Mammo: UTD, follows through [facility] 09/14/24 Colonoscopy: Never had, scheduled 07/12 [facility] Medical History (Updated 06/01/25 @ 08:48 by Gregoria Tyler PA-C) Colon cancer screening Surgical History History of laparoscopic appendectomy Hx laparoscopic cholecystectomy H/O tubal ligation H/O oral surgery Family History Mother Asthma HTN (hypertension) High cholesterol Skin cancer Diverticulosis Maternal Grandmother Cardiovascular disease Son Crohn disease Social History (Updated 06/29/25 @ 13:01 by Heather Acuna CMA) Household Members: Spouse Housing: House Are you a primary long term care social worker to a significant other at home: Yes Do you presently have visiting nurse or other home services: No Alcohol intake: current Comment: 1-2 times a year Patient Tobacco Use Status: Never used Tobacco e-Cigarette/Vaping Use: Never Used Second Hand Smoke Exposure: No service: No Current occupational status: employed 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 1. Little interest or pleasure in doing things: not at all 2. Feeling down, depressed, or hopeless: not at all 3. Trouble falling or staying asleep, or sleeping too much: not at all 4. Feeling tired or having little energy: not at all 5. Poor appetite or overeating: not at all 6. Feeling bad about yourself - or that you are a failure or have let yourself or your family down: not at all 7. Trouble concentrating on things, such as reading the newspaper or watching television: not at all 8. Moving or speaking so slowly that other people could have noticed. Or the opposite - being so fidgety or restless that you have been moving around a lot more than usual: not at all 9. Thoughts that you would be better off or of hurting yourself in some way: not at all Total score: 0 Depression Screening Interpretation: Negative Depression Screening Done: Yes 43566 - PHQ-9 Billing: Yes Source: Developed by Drs. Master Oneill, Nithya Rosales, Aashish Cervantes and colleagues, with an educational marlen from [employer]. Thrive Questionnaire Date Thrive assessed: 11/18/24 I am a: Patient What is your living situation today?: I have a steady place to live Within the past 12 months, did the food you bought not last and you didn't have the money to get more?: Never true Within the past 12 months, did you worry whether your food would run out before you got money to buy more?: Never true Do you have trouble paying for medicines?: No Do you have trouble getting transportation to medical appointments?: No Do you have trouble paying your heating and electricity bill?: No Do you have trouble taking care of your child, family member or friend?: No Do you have trouble with day-to-day activities such as bathing, preparing meals, shopping, managing finances, etc.?: No Are you currently unemployed and looking for a job?: No Are you interested in more education?: No Please select the resources that you would like help with: None Currently or been in a relationship where the following occur: No concerns reported THRIVE Score: 0 AUDIT C Alcohol Use Questionnaire (AUDIT-C) 1. How often do you have a drink containing alcohol?: Monthly or less 2. How many drinks containing alcohol do you have on a typical day when you are drinking?: 1 or 2 3. How often do you have six or more drinks on one occasion?: Never Total Score: 1 OMARI-7 AMB Questionnaire OMARI-7 Date OMARI - 7 assessed: 06/29/25 Feeling nervous, anxious, or on edge: 1 = Several days Not being able to stop or control worryin = Several days Worrying too much about different things: 1 = Several days Trouble relaxin = Several days Being so restless that it is hard to sit still: 1 = Several days Becoming easily annoyed or irritable: 1 = Several days Feeling afraid as if something awful might happen: 1 = Several days Total OMARI-7 score (0-4 normal; 5-9 mild; 10-14 moderate; 15-21 severe): 7 Source: Developed by Drs. Master Oneill, Nithya Rosales, Aashish Cervantes and colleagues, with an educational marlen from [employer]. OMARI-7 Assessment Billing OMARI-7 Assessment Tool: OMARI-7 Assessment 03330 Physical exam (Primary Care) Vital Signs: Last Vital Signs Temp 98.5 F 06/29/25 13:01 Pulse 87 06/29/25 13:01 Resp 14 06/29/25 13:01 BP 102/68 06/29/25 13:01 Pulse Ox 98 06/29/25 13:01 Oxygen Delivery Method Room Air 06/29/25 13:01 BMI result Body Mass Index 29.9 Tobacco/Smoking Status: Tobacco use Status Tobacco use date assessed 06/29/25 06/29/25 13:05 Patient Tobacco Use Status Never used Tobacco 06/29/25 13:01 e-Cigarette/Vaping Use Never Used 06/29/25 13:01 PHQ-9: PHQ-9 Score PHQ-9: Total score 0 06/29/25 13:05 Depression Screening Interpretation: Negative Thrive Assessment: Date of Thrive Assessment Date Thrive assessed 11/18/24 06/29/25 12:58 Currently or been in a relationship where the following occur: No concerns reported Const Orientation/consciousness: patient oriented x3 HENMT Ears: hearing grossly normal bilaterally and TM's normal bilaterally General nose exam: No nasal polyps present Face and sinus: Yes sinuses nontender Mouth: Normal oral and palatal mucosa present Eyes Pupils: Equal, round and reactive pupils present EOM: EOMs intact bilaterally Neck Neck: Yes full ROM and Yes no lymphadenopathy Thyroid: Thyroid normal Chest Chest palpation & inspection: normal inspection of the chest Resp Auscultation: clear to auscultation bilaterally Cardio Rate: regular rate Rhythm: regular rhythm Heart sounds: S1 normal heart sound present and S2 normal heart sound present Peripheral pulses: Peripheral pulses 2+ throughout GI Other: Soft, nontender Auscultation: normal bowel sounds Rectal Exam - Female: deferred General: Yes no CVA tenderness Back/Spine/Pelvis Other: Nontender Back: no CVA tenderness Skin General skin exam: no rashes or lesions noted Neuro General: patient oriented x3, gait normal, CN's II-XI intact bilaterally and deep tendon reflexes 2+ bilaterally Cranial nerves: Yes Equal, round and reactive pupils present Motor exam (neuro): 5/5 motor strength present throughout Sensory Exam: double simultaneous stimulation for sensation normal Coordination: izgerd-rx-oigt test normal and Romberg test negative Extrem General: Yes normal to inspection and Yes full ROM Psych Affect: normal affect Attitude: cooperative Thought process: Normal thought process present Thought content: Normal thought content present Insight: Good insight present (Psych) Judgement: Good judgement present (Psych) Results Reviewed Results Reviewed: Laboratory Tests 12/09/24 01/25/25 05/24/25 07:35 14:33 14:02 WBC 6.3 RBC 3.68 L Hgb 12.5 Hct 36.9 L Plt Count 203 Sodium 139 Potassium 3.9 Chloride 108 Carbon Dioxide 27 Anion Gap 8 L BUN 12 Creatinine 0.66 Estim Creat Clear Calc 67.8 Estimated GFR > 60 Random Glucose 102 Ferritin 23 Total Bilirubin 0.3 AST 15 ALT 18 Alkaline Phosphatase 71 Total Protein 6.6 Albumin 4.3 Triglycerides 40 Cholesterol 192 LDL Cholesterol, Calc 116 H HDL Cholesterol 68 Vitamin B12 175 L 480 25-OH Vitamin D Total 32.2 Folate 7.9 TSH 0.90 Coding Level of Care Code Est Pt Prev Care 40-64y(26197) Diagnoses Routine general medical examination at a health care facility Z00.00 Generalized anxiety disorder F41.1 Additional Codes OMARI-7 Assessment Billing - OMARI-7 Assessment Tool: OMARI-7 Assessment 77454 ([id number]) PHQ-9 - 54009 - PHQ-9 Billing: Yes ([id number]) Assessment & Plan Assessment & Plan (1) Routine general medical examination at a health care facility: Code(s): Z00.00 - Encounter for general adult medical examination without abnormal findings Plan: reviewed labs ordered will follow up pending results (2) Generalized anxiety disorder: Code(s): F41.1 - Generalized anxiety disorder Category: Medical Plan: Stable Orders: Orders Comprehensive Met. Panel Today F41.1 - Generalized anxiety disorder, Z00.00 - Encounter for general adult medical examination without abnormal findings, Z01.89 - Encounter for other specified special examinations Microalbumin, Random (w Creat) Today F41.1 - Generalized anxiety disorder, Z00.00 - Encounter for general adult medical examination without abnormal findings, Z01.89 - Encounter for other specified special examinations Complete Blood Count Auto Diff Today F41.1 - Generalized anxiety disorder, Z00.00 - Encounter for general adult medical examination without abnormal findings, Z01.89 - Encounter for other specified special examinations Lipid Panel Today F41.1 - Generalized anxiety disorder, Z00.00 - Encounter for general adult medical examination without abnormal findings, Z01.89 - Encounter for other specified special examinations TSH reflex Free T4 Today F41.1 - Generalized anxiety disorder, Z00.00 - Encounter for general adult medical examination without abnormal findings, Z01.89 - Encounter for other specified special examinations UA CC w/rflx Micro + Cult Today F41.1 - Generalized anxiety disorder, R30.0 - Dysuria, Z00.00 - Encounter for general adult medical examination without abnormal findings, Z01.89 - Encounter for other specified special examinations
[2025-06-29 13:01] VITALS: BP 102/68; PULSE 87; RESP 14; TEMP 36.9; O2SAT 98; BMI 29.9
--- OUTSIDE RECORDS SUMMARY | 2025-06-29 16:56 | XMS_ITS | Patient Health Record ---
Author Organization [employer] [facility] Address [address] [place] [address] Care Team Providers Care Investigator Internal Revenue Name Role Phone GERMÁN GONZALES Unavailable [phone] Allergies Allergen (clinical drug ingredient) Drug/Non Drug [...] Status Risk Notes Problem Uncomplicated asthma (disorder) (933106502) Unspecified asthma, uncomplicated (J45.909) Active confirmed Problem Psoriasis (9082360) Psoriasis, unspecified (L40.9) Active confirmed Problem Alopecia areata (55277848) Alopecia areata, unspecified (L63.9) Active confirmed Problem Calculus of kidney (68210549) Calculus of kidney (N20.0) Active confirmed Problem COVID-19 (842874376) COVID-19 (U07.1) Active confirmed Problem Gynecological examination normal (432231959859837) Routine gynecological examination (V72.31) Active confirmed Diag Vital Signs Temperature 97.7 degrees Fahrenheit 12/09/2024 Blood pressure diastolic 74 mm Hg 12/09/2024 Height 59.75 in 12/09/2024 Blood pressure systolic 122 mm Hg 12/09/2024 Weight 122 lbs 12/09/2024 BMI 24.02 kg/m2 12/09/2024 Encounters Encounter Location Date Provider Diagnosis [address] [place] [address] 12/09/2024 GERMÁN GONZALES Encounter for gynecological examination [...] Provider Name:GERMÁN Olvera, 12/13/2025 08:30:00 AM, [address], [address], [place], [address], Insurance Providers Payer Name Payer Address Payer Phone Subscriber Number Group Number Insured Name Patient Relationship to Insured Coverage Start Date Coverage End Date [employer] [place] [address] [place] [address] [id number] BISI HILARIO Self - patient is the insured Medical (General) History Medical History History ICD Code Calculus of kidney N20.0 Unspecified asthma, uncomplicated J45.90 9 Psoriasis, unspecified L40.9 Alopecia areata, unspecified L63.9 COVID-19 U07.1 Surgical History Surgery Date(Month/Year) BTL 08/1998 Cholecystectomy/Appendectomy Right breast biopsy - [facility] 09/2021 Removal of kidney stone 07/2022 Hospitalization History Reason Date(Month/Year) Childbirth
== END 2025-06-29 13:23 | disposition home or self-care (01) ==
LOC: HO.HMCFM 12:48
PROVIDERS: PCP Physician Assistant; Visit Provider Physician Assistant
DX: Z00.00 Encounter for general adult medical examination without abnormal findings (principal); F41.1 Generalized anxiety disorder

== ENCOUNTER → 2025-06-29 12:47 | Outpatient (BNVA) | payer BC, SELFPAY | PROVIDERS: PCP Physician Assistant; Visit Provider Physician Assistant | DX: Z00.00 Encounter for general adult medical examination without abnormal findings (principal); F41.1 Generalized anxiety disorder; F22 Delusional disorders | CPT/HCPCS: 96127 ==

== ENCOUNTER 2025-07-12 09:48 | Day surgery (SDC) | payer BC, SELFPAY ==
--- OUTSIDE RECORDS SUMMARY | 2025-06-02 19:24 | XMS_ITS | Patient Health Record ---
Author Organization [facility] Address [address] [place] [address] Care Team Providers Care Tours Captain Name Role Phone GERMÁN GONZALES Unavailable [phone] Allergies Allergen (clinical drug ingredient) Drug/Non Drug [...] Status Risk Notes Problem Uncomplicated asthma (disorder) (050387814) Unspecified asthma, uncomplicated (J45.909) Active confirmed Problem Psoriasis (3458674) Psoriasis, unspecified (L40.9) Active confirmed Problem Alopecia areata (63604143) Alopecia areata, unspecified (L63.9) Active confirmed Problem Calculus of kidney (02561669) Calculus of kidney (N20.0) Active confirmed Problem COVID-19 (378673712) COVID-19 (U07.1) Active confirmed Problem Gynecological examination normal (531487502860683) Routine gynecological examination (V72.31) Active confirmed Diag Vital Signs Temperature 97.7 degrees Fahrenheit 12/09/2024 Blood pressure diastolic 74 mm Hg 12/09/2024 Height 59.75 in 12/09/2024 Blood pressure systolic 122 mm Hg 12/09/2024 Weight 122 lbs 12/09/2024 BMI 24.02 kg/m2 12/09/2024 Encounters Encounter Location Date Provider Diagnosis [address] [place] [address] 12/09/2024 GERMÁN GONZALES Encounter for gynecological examination [...] Provider Name:GERMÁN Olvera, 12/13/2025 08:30:00 AM, [address], [address], [place], [address], Insurance Providers Payer Name Payer Address Payer Phone Subscriber Number Group Number Insured Name Patient Relationship to Insured Coverage Start Date Coverage End Date [employer] [place] [address] [place] [address] [phone] [id number] BISI HILARIO Self - patient is the insured Medical (General) History Medical History History ICD Code Calculus of kidney N20.0 Unspecified asthma, uncomplicated J45.90 9 Psoriasis, unspecified L40.9 Alopecia areata, unspecified L63.9 COVID-19 U07.1 Surgical History Surgery Date(Month/Year) BTL 08/1998 Cholecystectomy/Appendectomy Right breast biopsy - [facility] 09/2021 Removal of kidney stone 07/2022 Hospitalization History Reason Date(Month/Year) Childbirth
--- NOTE | 2025-07-06 10:23 | P.CONAN_ITS ---
Documented by User: Dilia Sinha NP 07/06/25 10:24 HPI - Anesthesia Eval Consult details Narrative: 50 yr old female for Upper Endoscopy and Colonoscopy Asthma/RAD: on prn albuterol only PMFSH Active Problems Active Problems: All Active Problems Abdominal pain (Acute) Colon cancer screening (Acute) Anemia (Acute) Generalized anxiety disorder (Acute) Vitamin D deficiency (Acute) RAD (reactive airway disease) (Acute) Renal stones (Acute) Past Medical History Medical History Anemia Asthma Colon cancer screening Family History Family History Mother Asthma HTN (hypertension) High cholesterol Skin cancer Diverticulosis Maternal Grandmother Cardiovascular disease Son Crohn disease Surgical History Surgical History Hx of cystoscopy History of laparoscopic appendectomy Hx laparoscopic cholecystectomy H/O tubal ligation H/O oral surgery Social History Social History Household Members: Spouse Housing: House Are you a primary rn progressive care unit to a significant other at home: Yes Do you presently have visiting nurse or other home services: No Alcohol intake: current Alcohol intake frequency: former alcohol drinker Comment: 1-2 times a year Patient Tobacco Use Status: Never used Tobacco e-Cigarette/Vaping Use: Never Used Second Hand Smoke Exposure: No Use of substances other than those prescribed or required for medical reasons: No Are you DNR?: No Advance Directives: No Advance Directives Information Provided: Yes service: No Current occupational status: employed 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 Current occupational exposures/hazards: No Cognitive needs: No Hearing needs: No Vision needs: No Meds Allergies Allergy/AdvReac Type Severity Reaction Status Date / Time shellfish derived (shellfish) Allergy Severe Anaphylaxis Verified 07/12/25 10:05 tree nut Allergy Severe Anaphylaxis Verified 07/12/25 10:05 pseudoephedrine Allergy Mild Headache Verified 07/12/25 10:05 Sulfa (Sulfonamide Allergy Unknown Unknown Verified 07/12/25 10:05 Antibiotics) acetaminophen (From Tylenol) Allergy Vomiting Verified 07/12/25 10:05 peanuts Allergy Severe Anaphylaxis Uncoded 06/29/25 13:00 salmon Allergy Severe Anaphylaxis Uncoded 06/29/25 13:00 Home Medications ?Medication ?Instructions ?Recorded ?Confirmed ?Last Taken ?Type albuterol sulfate 90 mcg/actuation 2 puff inhalation Q 6H PRN 07/08/25 07/12/25 Unknown History aerosol inhaler Shortness Of Breath Or Wheez ing Assessment and Plan Assessment Anesthesia Assessment: Chart Reviewed Documented by User: Socorro Dalal MD 07/12/25 12:19 PMFSH Past Medical History Medical History Anemia Asthma Colon cancer screening Family History Family History Mother Asthma HTN (hypertension) High cholesterol Skin cancer Diverticulosis Maternal Grandmother Cardiovascular disease Son Crohn disease Family history of problems with anesthesia: No Surgical History Surgical History Hx of cystoscopy History of laparoscopic appendectomy Hx laparoscopic cholecystectomy H/O tubal ligation H/O oral surgery History of Problems with Anesthesia: No Social History Social History Household Members: Spouse Housing: House Are you a primary rn progressive care unit to a significant other at home: Yes Do you presently have visiting nurse or other home services: No Alcohol intake: current Alcohol intake frequency: former alcohol drinker Comment: 1-2 times a year Patient Tobacco Use Status: Never used Tobacco e-Cigarette/Vaping Use: Never Used Second Hand Smoke Exposure: No Use of substances other than those prescribed or required for medical reasons: No Are you DNR?: No Advance Directives: No Advance Directives Information Provided: Yes service: No Current occupational status: employed 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 Current occupational exposures/hazards: No Cognitive needs: No Hearing needs: No Vision needs: No Meds Allergies Allergy/AdvReac Type Severity Reaction Status Date / Time shellfish derived (shellfish) Allergy Severe Anaphylaxis Verified 07/12/25 10:05 tree nut Allergy Severe Anaphylaxis Verified 07/12/25 10:05 pseudoephedrine Allergy Mild Headache Verified 07/12/25 10:05 Sulfa (Sulfonamide Allergy Unknown Unknown Verified 07/12/25 10:05 Antibiotics) acetaminophen (From Tylenol) Allergy Vomiting Verified 07/12/25 10:05 peanuts Allergy Severe Anaphylaxis Uncoded 06/29/25 13:00 salmon Allergy Severe Anaphylaxis Uncoded 06/29/25 13:00 Home Medications ?Medication ?Instructions ?Recorded ?Confirmed ?Last Taken ?Type albuterol sulfate 90 mcg/actuation 2 puff inhalation Q 6H PRN 07/08/25 07/12/25 Unknown History aerosol inhaler Shortness Of Breath Or Wheez ing Exam Airway Mallampati Class: II TM Dist: >3cm Neck ROM: Full Heart: rrr Lungs: cta Assessment and Plan Assessment Anesthesia Assessment: Anesthesia Plan Discussed Final Anesthetic Review Family History of Problems with Anesthesia: No History of Problems with Anesthesia: No NPO: Yes ASA Class: II Final Preanesthetic Review: No Changes in Pt Med Stat, Meds/Allgs Chart Reviewed, Consent Obtained/Reviewed and Anes Risks/Benef Reviewed Patient Risk: Low Procedure Risk: Low Anesthetic Plan Anesthetic Plan: MAC: Disposition: Standard PACU
[2025-07-08 13:31] VITALS: BMI 30.4
[2025-07-12 10:06] VITALS: BMI 24.8
[2025-07-12 10:08] VITALS: BP 130/84; PULSE 100; RESP 14; TEMP 36.9; O2SAT 100
[2025-07-12] MEDS: Lactated Ringers 1,000 ML 100 ML IVCONT (10:20)
--- NOTE | 2025-07-12 10:59 | MHC.SHP ---
Pre-Procedural Eval Section A - 24 Hr Update-Section A only Date of Service: 07/12/25 Section B - Complete if H&P > 30 days Chief Complaint: Anemia Details of Present Illness: Surgical History History of laparoscopic appendectomy Hx laparoscopic cholecystectomy H/O tubal ligation H/O oral surgery Family History (Updated 05/04/25 @ 16:02 by Genny Lao CNP) Mother Asthma HTN (hypertension) High cholesterol Skin cancer Diverticulosis Maternal Grandmother Cardiovascular disease Son Crohn disease Present Medications: see Short Stay Collaborative assessment Allergies: Allergies Allergy/AdvReac Type Severity Reaction Status Date / Time shellfish derived (shellfish) Allergy Severe Anaphylaxis Verified 07/12/25 10:05 tree nut Allergy Severe Anaphylaxis Verified 07/12/25 10:05 pseudoephedrine Allergy Mild Headache Verified 07/12/25 10:05 Sulfa (Sulfonamide Allergy Unknown Unknown Verified 07/12/25 10:05 Antibiotics) acetaminophen (From Tylenol) Allergy Vomiting Verified 07/12/25 10:05 peanuts Allergy Severe Anaphylaxis Uncoded 06/29/25 13:00 salmon Allergy Severe Anaphylaxis Uncoded 06/29/25 13:00 Review of Systems Review of Systems Comment: Ten point ROS negative Exam Exam Comment: Gen appear: No acute distress HEENT: no icterus Chest: No overt resp distress Abd: soft, nontender, nondistended Psych: Stable affect, answering questions appropriately Neuro: A/Ox3 noted to move all extremities spontaneously Ext: no peripheral edema Plan Diagnosis/Plan: Unchanged I have reviewed the history and physical and performed a pertinent physical examination on my patient. No changes have occurred unless specified. Time Spent With Patient Time: Total time managing care of this patient today ____ minutes.
[2025-07-12 12:33] VITALS: BP 104/69; PULSE 92; RESP 16; TEMP 36.7; O2SAT 99
[2025-07-12 12:45] VITALS: BP 109/76; PULSE 80; RESP 16; TEMP 36.7; O2SAT 99
--- NOTE | 2025-07-12 13:11 | P.OPN-COLO_ITS ---
Colonoscopy Operative Note Operative Note Date of Service: 07/12/25 Narrative: Procedure: Upper endoscopy and colonoscopy Indication: Anemia Endoscopist: Alondra Rivero MD Anesthesia Provider: Cong Ferreira CRNA Anesthesia type: MAC Instrument: [id number] and [id number] EGD Procedure:?? The procedure, indications, preparation and potential complications were reviewed with the patient, who indicated understanding and gave written informed consent to proceed. The endoscope was introduced through the mouth, and advanced to the 2nd part of the duodenum. The mucosa was carefully examined on slow withdrawal of the endoscope. The patient tolerated the procedure well. There were no immediate complications.? EGD Findings:? * Esophagus:? Normal esophageal mucosa was noted. The Z-line was at 30 cm displaced by small hiatal hernia with the diaphragmatic pinch at 32 cm. There was a 6 mm nodule at the GE junction. Cold forceps biopsies were taken from the nodule. * Stomach:? Erythema and scant heme in the antrum. Retroflexion was performed in the cardia. A few polyps were noted in the stomach. Random cold forceps biopsies were taken from the stomach. * Duodenum:? Mild erythema in the duodenal bulb. Cold forceps biopsies were taken from the duodenal bulb and 2nd portion of the duodenum to rule out celiac sprue. Colonoscopy Procedure:? The patient was then turned for the colonoscopy. A digital rectal exam was performed which was normal.? A distal attachment cap was affixed to the tip of the scope and the colonoscope was then inserted through the anus and advanced through the colon and advanced to the cecum at 75 cm and terminal ileum.? Appendiceal orifice and ileocecal valve were identified. Mucosa was carefully examined under high definition white light as the instrument was slowly withdrawn in a retrograde panoramic fashion. Retroflexion was performed in rectum. The procedure was not difficult. The quality of the prep was BBPS: 3+2+3 = adequate Withdrawal time 9 minutes Limitations: No limitations Findings: Mucosa: Normal colon and terminal ileum mucosa. Protruding lesions: * Medium internal hemorrhoids without stigmata of recent bleeding. Impression: 1. Normal esophagus 2. GE junction nodule (biopsy) 3. Hiatal hernia 4. Gastritis (biopsy) 5. Duodenitis (biopsy) 6. Normal colon and terminal ileum mucosa 7. Internal hemorrhoids Recommendations:?? * Follow-up path results * Avoid NSAIDs * Start omeprazole 20 mg once daily * H Pylori treatment if biopsies + * Repeat colonoscopy for CRC screening in 10 years.
== END 2025-07-12 13:15 | disposition home or self-care (01) ==
PROVIDERS: PCP Physician Assistant; Visit Provider Internal Medicine
PROC: (CPT 45378; principal; 2025-07-12 12:10)
DX: Z12.11 Encounter for screening for malignant neoplasm of colon (principal); D50.9 Iron deficiency anemia, unspecified; K31.7 Polyp of stomach and duodenum; K64.8 Other hemorrhoids; K22.82 Esophagogastric junction polyp; K44.9 Diaphragmatic hernia without obstruction or gangrene; K29.70 Gastritis, unspecified, without bleeding; B96.89 Other specified bacterial agents as the cause of diseases classified elsewhere; K29.80 Duodenitis without bleeding
CPT/HCPCS: 45378; 43239; 88305; 88313; 88342; J2003; J2704

== ENCOUNTER → 2025-07-12 09:48 | Outpatient (BNV) | payer BC, SELFPAY | PROVIDERS: PCP Physician Assistant; Visit Provider Internal Medicine | DX: D64.9 Anemia, unspecified (principal); K22.81 Esophageal polyp; K31.7 Polyp of stomach and duodenum; K29.70 Gastritis, unspecified, without bleeding; K29.80 Duodenitis without bleeding; K64.8 Other hemorrhoids | CPT/HCPCS: 43239; 45378 ==